=== PATIENT | female | born 1955 | race Caucasian/White ===

== ENCOUNTER 2021-06-19 07:20 | Inpatient (IN) ==
[2021-06-19] MEDS ORDERED: fentaNYL citrate 100 MCG/2 ML VIAL IV STA (07:42)
--- NOTE | 2021-06-19 07:50 | Emergency Department Note ---
Impression & Plan Spinal stenosis of lumbar region with radiculopathy, Lumbar radiculopathy ED Provider Note Provider: Kip Rogers MD DATE OF SERVICE: 06/19/2021 CHIEF COMPLAINT: Back pain HISTORY OF PRESENT ILLNESS: Patient is a 65-year-old female history of hypertension and diabetes presenting here today complaining of worsening lower back pain. Patient states she has had some ongoing issues for quite some times more than 5 years. She reports that this pain initially began in the low back with some radiation of the left leg and some numbness in the left thigh that over the past several years moved into her left foot. Patient states more recently has worsened and she is now having some pain wrapping around to her right hip and right upper thigh but no numbness here. Patient states she has been stumbling a bit but has not suffered any serious falls. Patient reports he has had some intermittent episodes of incontinence but this has been better more recently. Denies numbness or tingling in the groin currently. Patient states that she has been using muscle relaxants hydrocodone except this morning to try to help with her pain. Has been in contact with Dr. Espinosa and was scheduled for surgery which was put on hold due to the pandemic. No prior histories of back surgery. Patient states that he is unable to get around adequately is having uncontrolled pain. Has been using gabapentin in addition to her hydrocodone and muscle relaxer. Does take a baby aspirin. In discussion with Dr. Espinosa's office was referred to the ER with worsening symptoms and thus she presents here today with her . Patient did have a prior series of spinal injections for pain control that were only helpful very temporarily. REVIEW OF SYSTEMS: A total of 10 review of systems was obtained and negative except as stated above in the HPI. PAST MEDICAL HISTORY: As noted above MEDICATIONS: Reviewed home medications includes 81 mg aspirin SOCIAL HISTORY: , lives at home in [place] PHYSICAL EXAM: GENERAL: alert and oriented in no acute distress on stretcher Head: normocephalic and atraumatic EYES: No injection, discharge or icterus. NECK: Trachea midline. LUNGS: Airway patent. No retractions or tachypnea HEART: Regular rate and rhythm. ABDOMEN: Soft and non-tender, without guarding or rebound. BACK: Patient with some mild diffuse lower back tenderness of the lumbar region midline as well as the SI joints. SKIN: Acyanotic, warm, dry, without rashes EXTREMITIES: Without swelling, tenderness or deformity NEUROLOGICAL: No aphasia. No facial droop or slurred speech. Normal strength and tone in the extremities. Ambulatory with slight shuffling gait. Patient with some decreased sensation subjectively of the left leg but feels gross touch throughout. PDMP was checked without noted issue. Patient's laboratory studies reviewed. Differential includes Musculoskeletal, disc herniation, fracture, metastatic disease, cord compression, discitis, sciatica, cauda equina, infection, aortic disease, renal colic, gastrointestinal, as well as other pathologies. IMPRESSION/MEDICAL DECISION MAKING: Patient history of back disease/disc disease now worsening pain. Given some pain control here. Has been on gabapentin, muscle relaxer, hydrocodone at home. Follows with Dr. Espinosa. No emergent immediate neurological status change reported by the patient. Denies saddle anesthesia. Some intermittent episodes of incontinence with the patient states this has actually improved a little bit more recently other her pain predominantly on the right side of her back into her upper thighs worsened. Patient states that the pain again is uncontrolled at home. Given small amount of pain medicine here. Discussed with Dr. Espinosa. Basic blood work without severe abnormality. Discussed with Dr. Espinosa and will bring into the hospital for further care from an orthopedic spine standpoint and see if we are able to possibly get her for back surgery given her significant pain complaints. Patient in agreement with this plan. DIAGNOSIS: Low back pain with radiculopathy DISPOSITION: Further care by orthopedic spine Patient was agreeable with this plan. 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 requests no balloons in hospital room. Scoliosis Sleep apnea CPAP-not currently using due to recall Spinal stenosis TMJ (temporomandibular joint disorder) wears mouth guard qHS; denies clicking or locking Urinary incontinence Surgical History History of cataract surgery History of colonoscopy History of detached retina repair History of non-cataract eye surgery multiple BL History of total abdominal hysterectomy and bilateral salpingo-oophorectomy History of wisdom tooth extraction Family History Father Slow to wake up after anesthesia Social History Smoking Status: Never smoker Second Hand Exposure: No; Tobacco Cessation Education Requested by Patient: No Hx Alcohol Use: Yes Alcohol type: wine Hx Substance Use: No Preferred Language: Frisian Communication Ability: Effective Dairy Department Manager Required: No Beliefs That Will Affect Care: None Current Living Situation: Spouse Other Information That Helps Us Care for You: No Feels Safe at Home: Yes Safety Concerns: Feels Safe At This Time Assistive Devices: None Allergies Allergies Allergy/AdvReac Type Severity Reaction Status Date / Time ciprofloxacin [From Cipro] Allergy facial Verified 06/19/21 08:56 edema Sulfa (Sulfonamide Allergy Unknown Verified 06/19/21 08:56 Antibiotics) azithromycin [From Zithromax] AdvReac Tachycardia Verified 06/19/21 08:56 Home Meds Home Medications Medication Instructions Recorded Confirmed aspirin 81 mg tablet,delayed 81 mg PO HS 05/08/21 06/19/21 release calcium carbonate 600 mg-vitamin 1 tab PO HS 05/08/21 06/19/21 D3 5 mcg (200 unit) tablet fluoxetine 20 mg capsule (Prozac) 20 mg PO QAM 05/08/21 06/19/21 gabapentin 100 mg capsule 100 - 200 mg PO TID 05/08/21 06/19/21 (Neurontin) hydrocodone 5 mg-acetaminophen 325 1 tab PO Q6H PRN 05/08/21 06/19/21 mg tablet insulin degludec 100 unit/mL 50 unit SUBCUT HS 05/08/21 06/19/21 subcutaneous solution (Tresiba U-100 Insulin) lisinopril 20 1 tab PO QAM 05/08/21 06/19/21 mg-hydrochlorothiazide 25 mg tablet metformin 500 mg tablet 1,000 mg PO BID 05/08/21 06/19/21 methocarbamol 500 mg tablet 500 mg PO Q8H PRN 05/08/21 06/19/21 tblgpvxscwqh-oehvovgo-vmksfa tablet 1 tab PO QAM 05/08/21 06/19/21 pioglitazone 30 mg tablet (Actos) 30 mg PO QAM 05/08/21 06/19/21 vit C 250 mg-vit E 90 mg-zinc 40 1 tab PO BID 05/08/21 06/19/21 mg-copper 1 [id number]-[id number] capsule (PreserVision AREDS-2) Results & Data (ED) Vital Signs Vital Signs - 24 hr 06/19/21 07:28 Temperature 36.4 C L Temperature Source Oral Pulse Rate 74 Respiratory Rate 20 Respiratory Effort / Characteristics Non-Labored Respiratory Depth Normal Blood Pressure 168/79 H Blood Pressure Mean 108 Pulse Oximetry 100 Oxygen Delivery Method Room Air Sepsis Recent Fever Within 48 Hours No Sepsis New/Unexplained Change in Mental Status N/A Sepsis Action Taken by Nursing No Action Required Laboratory Data Result diagrams: 06/19/21 08:15 06/19/21 08:15 Lab Results 06/19/21 06/19/21 06/19/21 Range/Units 08:15 08:15 08:15 WBC 5.54 (4.8-10.8) K/uL RBC 4.40 (4.2-5.4) M/uL Hgb 13.1 (12.0-16.0) g/dL Hct 41.0 (37-47) % MCV 93.2 (80-100) fL MCH 29.8 (25-34) pg MCHC 32.0 (32-36) g/dL RDW Std Deviation 46.3 (36.4-46.3) fL RDW Coeff of Harmeet 13.5 (11.5-14.5) % Plt Count 298 (130-400) K/uL MPV 9.3 (7.4-10.4) fL Immature Gran % (Auto) 0.4 % Neut % (Auto) 62.2 % Lymph % (Auto) 25.3 % [place] % (Auto) 10.5 % Eos % (Auto) 1.4 % Baso % (Auto) 0.2 % Neut # (Auto) 3.45 (1.4-6.5) K/uL Lymph # (Auto) 1.40 (1.2-3.4) K/uL [place] # (Auto) 0.58 (0.11-0.59) K/uL Eos # (Auto) 0.08 (0-0.5) K/uL Baso # (Auto) 0.01 (0-0.2) K/uL Immature Gran # (Auto) 0.02 (0.00-0.02) K/uL PT 9.9 (9.0-12.0) Seconds INR 1.0 (0.9-1.1) Sodium 139 (136-145) mmol/L Potassium 3.9 (3.5-5.1) mmol/L Chloride 104 (98-107) mmol/L Carbon Dioxide 29 (21-32) mmol/L Anion Gap 6 (3-11) BUN 15 (6-23) mg/dl Creatinine 0.59 L (0.6-1.2) mg/dl Est Cr Clr Drug Dosing 102.6 ml/min Est GFR ( Amer) 112.3 ml/min Est GFR (Non-Af Amer) 96.9 ml/min BUN/Creatinine Ratio 25.4 H (10-20) Glucose 79 (70-99(Fasting)) mg/dl Calcium 8.9 (8.5-10.1) mg/dl Urine Color Urine Appearance (Clear) Urine pH (4.5-7.5) Ur Specific Hyrum (1.000-1.030) Urine Protein (Negative) Urine Glucose (UA) (Negative) Urine Ketones (Negative) Urine Blood (Negative) Urine Nitrite (Negative) Urine Bilirubin (Negative) Urine Urobilinogen (Negative) Ur Leukocyte Esterase (Negative) Urine WBC (Auto) (0-5) /hpf Urine RBC (Auto) (0-4) /hpf U Hyaline Cast (Auto) (0-5) /lpf U Epithel Cells (Auto) (0-5) /lpf Urine Bacteria (Auto) (Negative) SARS-CoV-2, RNA, NAAT (NEGATIVE) 06/19/21 06/19/21 Range/Units 08:15 08:15 WBC (4.8-10.8) K/uL RBC (4.2-5.4) M/uL Hgb (12.0-16.0) g/dL Hct (37-47) % MCV (80-100) fL MCH (25-34) pg MCHC (32-36) g/dL RDW Std Deviation (36.4-46.3) fL RDW Coeff of Harmeet (11.5-14.5) % Plt Count (130-400) K/uL MPV (7.4-10.4) fL Immature Gran % (Auto) % Neut % (Auto) % Lymph % (Auto) % [place] % (Auto) % Eos % (Auto) % Baso % (Auto) % Neut # (Auto) (1.4-6.5) K/uL Lymph # (Auto) (1.2-3.4) K/uL [place] # (Auto) (0.11-0.59) K/uL Eos # (Auto) (0-0.5) K/uL Baso # (Auto) (0-0.2) K/uL Immature Gran # (Auto) (0.00-0.02) K/uL PT (9.0-12.0) Seconds INR (0.9-1.1) Sodium (136-145) mmol/L Potassium (3.5-5.1) mmol/L Chloride (98-107) mmol/L Carbon Dioxide (21-32) mmol/L Anion Gap (3-11) BUN (6-23) mg/dl Creatinine (0.6-1.2) mg/dl Est Cr Clr Drug Dosing ml/min Est GFR ( Amer) ml/min Est GFR (Non-Af Amer) ml/min BUN/Creatinine Ratio (10-20) Glucose (70-99(Fasting)) mg/dl Calcium (8.5-10.1) mg/dl Urine Color Yellow Urine Appearance Clear (Clear) Urine pH 5.5 (4.5-7.5) Ur Specific Hyrum 1.024 (1.000-1.030) Urine Protein Negative (Negative) Urine Glucose (UA) Negative (Negative) Urine Ketones Negative (Negative) Urine Blood Negative (Negative) Urine Nitrite Negative (Negative) Urine Bilirubin Negative (Negative) Urine Urobilinogen Negative (Negative) Ur Leukocyte Esterase 2+ H (Negative) Urine WBC (Auto) 10-30 H (0-5) /hpf Urine RBC (Auto) 0-4 (0-4) /hpf U Hyaline Cast (Auto) 1-5 (0-5) /lpf U Epithel Cells (Auto) 20-30 H (0-5) /lpf Urine Bacteria (Auto) Negative (Negative) SARS-CoV-2, RNA, NAAT NEGATIVE (NEGATIVE) Administered Medications Fluoxetine HCl (Fluoxetine Hcl 20 Mg Cap) 20 mg PO QAM [facility] Stop: 07/19/21 10:29 Last Admin: 06/19/21 10:27 Dose: Not Given Documented by: [id number] Gabapentin (Gabapentin 100 Mg Cap) 200 mg PO BID [facility] Stop: 07/19/21 10:29 Last Admin: 06/19/21 10:26 Dose: Not Given Documented by: [id number] Sodium Chloride (Nss 1000ml) 1,000 mls @ 75 mls/hr IV .[id number] [facility] Stop: 07/19/21 09:59 Last Admin: 06/19/21 10:27 Dose: 75 mls/hr Documented by: [id number] Discontinued Medications Fentanyl Citrate (Fentanyl Citrate 100 Mcg/2 Ml Vial) 50 mcg IV NOW [facility] Stop: 06/19/21 07:43 Last Admin: 06/19/21 08:30 Dose: 50 mcg Documented by: [id number] Lisinopril/HCTZ (Lisinopril/Hctz 20/25mg 1 Tab) 1 tab PO QAM [facility] Stop: 07/19/21 10:29 Last Admin: 06/19/21 10:36 Dose: 1 tab Documented by: [id number] Discharge Plan Visit Data Chief Complaint: Back Injury/Pain Stated Complaint: SEVERE LOWER BACK PAIN ED Provider: Kip Rogers Discharge Problem: Spinal stenosis of lumbar region with radiculopathy, Lumbar radiculopathy Patient Disposition: Admitted As Inpatient Discharge Instructions Interventions: ED Discharge Assessment Last Done: 06/19/21 09:50
[2021-06-19 08:45] LABS: Appearance Urine Clear (Clear); Bacteria Urine Automated Negative (Negative); Bilirubin Urine Negative (Negative); Blood Urine Negative (Negative); Color Urine Yellow; Epithelial Cell Urine Auto 20-30 /lpf (0-5); Glucose Urine UA Negative (Negative); Ketones Urine Negative (Negative); Leukocyte Esterase Urine 2+ (Negative); Nitrite Urine Negative (Negative); Protein Urine Negative (Negative); RBC Urine Automated 0-4 /hpf (0-4); Specific Gravity Urine 1.024 (1.000-1.030); Urobilinogen Urine Negative (Negative); pH Urine 5.5 (4.5-7.5)
[2021-06-19 08:51] LABS: Basophils # (auto) 0.01 K/uL (0-0.2); Basophils % (auto) 0.2 %; Eosinophils # (auto) 0.08 K/uL (0-0.5); Eosinophils % (auto) 1.4 %; Hemoglobin 13.1 g/dL (12.0-16.0); Immature Granulocytes # (auto) 0.02 K/uL (0.00-0.02); Immature Granulocytes % (auto) 0.4 %; Lymphocytes % (auto) 25.3 %; Mean Corpuscular Hemoglobin 29.8 pg (25-34); Mean Corpuscular Volume 93.2 fL (80-100); Mean Platelet Volume 9.3 fL (7.4-10.4); Monocytes # (auto) 0.58 K/uL (0.11-0.59); Monocytes % (auto) 10.5 %; Neutrophils # (auto) 3.45 K/uL (1.4-6.5); Neutrophils % (auto) 62.2 %; Platelet Count 298 K/uL (130-400); RDW Coefficient of Variation 13.5 % (11.5-14.5); RDW Standard Deviation 46.3 fL (36.4-46.3); White Blood Count 5.54 K/uL (4.8-10.8)
[2021-06-19 08:58] LABS: Prothrombin Time 9.9 Seconds (9.0-12.0)
[2021-06-19 09:15] LABS: BUN Creatinine Ratio 25.4 (10-20); Calcium 8.9 mg/dl (8.5-10.1); Creatinine Clr Calc Pharmacy 102.6 ml/min; Est GFR (African American) 112.3 ml/min; Est GFR (Non-African American) 96.9 ml/min; Potassium 3.9 mmol/L (3.5-5.1)
[2021-06-19] MEDS ORDERED: traMADol HCL 50 MG TABLET PO PRN (10:00)
[2021-06-19] MEDS ORDERED: NON-FORMULARY MEDICATION (Pioglitazone [Actos] 30 mg Tablet) PO SCH (10:00)
[2021-06-19] MEDS ORDERED: METHOCARBAMOL 500 MG TABLET PO PRN (10:00)
[2021-06-19] MEDS ORDERED: ACETAMINOPHEN 1,000 MG/100 ML VIAL IV PRN (10:00)
[2021-06-19] MEDS ORDERED: PHARMACY GLYCEMIC MGMT CONSULT PRN (10:00)
[2021-06-19] MEDS ORDERED: ACETAMINOPHEN 500 MG TAB PO PRN (10:00)
[2021-06-19] MEDS ORDERED: HYDROmorphone INJ 0.5 MG/0.5 ML SYR IV PRN (10:00)
[2021-06-19] MEDS ORDERED: ONDANSETRON INJ 2 MG/ML 2 ML VIAL IV PRN (10:00)
[2021-06-19] MEDS ORDERED: HYDROmorphone INJ 1 MG/ML SYRINGE IV PRN (10:00)
[2021-06-19] MEDS ORDERED: METOCLOPRAMIDE HCL INJ 5 MG/ML 2 ML VIAL IV PRN (10:00)
[2021-06-19] MEDS ORDERED: ALUMINUM/MAGNESIUM SUSP 30 ML UDC PO PRN (10:00)
[2021-06-19] MEDS ORDERED: NALOXONE HCL 0.4 MG/1 ML VIAL/CARP IV PRN (10:00)
[2021-06-19] MEDS ORDERED: ONDANSETRON 4 MG OD TAB PO PRN (10:00)
[2021-06-19] MEDS ORDERED: PROMETHAZINE HCL 12.5 MG in SODIUM CHLORIDE 0.9% 50 ML IV PRN (10:00)
[2021-06-19] MEDS ORDERED: MAGNESIUM HYDROXIDE SUSP 30 ML UDC PO PRN (10:00)
--- NOTE | 2021-06-19 10:01 | History & Physical Report ---
Date of Service June 19, 2021 Assessment & Plan (1) Spinal stenosis of lumbar region with radiculopathy: Plan: At this time the patient has progressive deficit with significant pain affecting the S1 nerve root left greater than right. I am recommending urgent lumbar decompression fusion L5-S1. She has known displaced left retrolisthesis with lateral recess and foraminal disease it would require aggressive facetectomy and foraminotomies further adding to underlying alignment issues and stability subsequently requiring fusion. Risk benefits pros cons alternatives were outlined in detail. I will make her n.p.o. after midnight obtain an urgent MRI date for updated imaging. History of Present Illness Chief Complaint: Back and bilateral leg pain with weakness Primary Care Provider: Heidi Stanford, This is a 65-year-old female who presents to emergency room with a steady decline in status. She has been seen in our office recently with concerns regarding back pain radiating to the bilateral buttock and vertically down the left lower extremity to the foot. Is been going progressive the past several years. Unfortunately injections performed recently lumbar spine exacerbated her radiculopathy. She is unable to stand or walk any distance. She notes marked deficits with her left foot tickly with plantar flexion. Allergies Allergy/AdvReac Type Severity Reaction Status Date / Time ciprofloxacin [From Cipro] Allergy facial Verified 06/19/21 08:56 edema Sulfa (Sulfonamide Allergy Unknown Verified 06/19/21 08:56 Antibiotics) azithromycin [From Zithromax] AdvReac Tachycardia Verified 06/19/21 08:56 Home Medications Medication Instructions Recorded Confirmed Type aspirin 81 mg tablet,delayed 81 mg PO HS 05/08/21 06/19/21 History release calcium carbonate 600 mg-vitamin 1 tab PO HS 05/08/21 06/19/21 History D3 5 mcg (200 unit) tablet fluoxetine 20 mg capsule (Prozac) 20 mg PO QAM 05/08/21 06/19/21 History gabapentin 100 mg capsule 100 - 200 mg PO TID 05/08/21 06/19/21 History (Neurontin) hydrocodone 5 mg-acetaminophen 325 1 tab PO Q6H PRN 05/08/21 06/19/21 History mg tablet insulin degludec 100 unit/mL 50 unit SUBCUT HS 05/08/21 06/19/21 History subcutaneous solution (Tresiba U-100 Insulin) lisinopril 20 1 tab PO QAM 05/08/21 06/19/21 History mg-hydrochlorothiazide 25 mg tablet metformin 500 mg tablet 1,000 mg PO BID 05/08/21 06/19/21 History methocarbamol 500 mg tablet 500 mg PO Q8H PRN 05/08/21 06/19/21 History iuageaxebent-muqwmwtr-kmhgpb tablet 1 tab PO QAM 05/08/21 06/19/21 History pioglitazone 30 mg tablet (Actos) 30 mg PO QAM 05/08/21 06/19/21 History vit C 250 mg-vit E 90 mg-zinc 40 1 tab PO BID 05/08/21 06/19/21 History mg-copper 1 ua-tmhezi-olbmoj capsule (PreserVision AREDS-2) Past Med/Surg History Medical History (Updated 06/19/21 @ 10:00 by Tom Espinoas DO) Anxiety and depression controlled, stable per pt DM type 2 (diabetes mellitus, type 2) IDDM Fear of loud noises Hearing deficit BL SOSA History of endometrial cancer 2009 - sx + radiation History of migraine History of transfusion 2010 with hysterectomy Osteoarthritis 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 requests no balloons in hospital room. Scoliosis Sleep apnea CPAP-not currently using due to recall Spinal stenosis TMJ (temporomandibular joint disorder) wears mouth guard qHS; denies clicking or locking Urinary incontinence Surgical History History of cataract surgery History of colonoscopy History of detached retina repair History of non-cataract eye surgery multiple BL History of total abdominal hysterectomy and bilateral salpingo-oophorectomy History of wisdom tooth extraction Family History Father Slow to wake up after anesthesia Social History Smoking Status: Never smoker Second Hand Exposure: No; Hx Alcohol Use: Yes Hx Substance Use: No Preferred Language: Divehi Communication Ability: Effective Electromatic Typist Required: No Beliefs That Will Affect Care: None Current Living Situation: Spouse Feels Safe at Home: Yes Assistive Devices: Glasses and Hearing Aid - Bilateral Physical Exam Physical Exam: On exam the patient demonstrates sensation light touch and cold bilateral extremities. She is marked tension signs with straight leg raising on the left compared to the right. There is some deficits of plantarflexion at a 4-/5 on the left compared to five five on the right. Dorsiflexion appears to be symmetric over five or five bilaterally as well as quadriceps. Results & Data ([facility]) Vital Signs (Past 12 Hours) Vital Signs Temp Pulse Pulse Resp BP BP Pulse Ox 06/19/21 09:20 69 18 146/70 H 98 06/19/21 07:28 36.4 C L 74 20 168/79 H 100 Code Status & VTE Plan VTE Prophylaxis Plan VTE Prophylaxis will be ordered: Yes
[2021-06-19] MEDS: GABAPENTIN 100 MG CAP PO SCH ×2 (10:26→20:39)
[2021-06-19] MEDS: FLUoxetine HCL 20 MG CAP PO SCH (10:27)
[2021-06-19] MEDS: SODIUM CHLORIDE 0.9% 1000ML 1,000 ML IV SCH ×2 (10:27→23:34)
[2021-06-19] MEDS ORDERED: LISINOPRIL/HCTZ 20/25MG 1 TAB PO SCH (10:30)
[2021-06-19] MEDS ORDERED: GLUCOSE 40% GEL 15 GM TUBE PO PRN (11:03)
[2021-06-19] MEDS ORDERED: GLUCOSE 10 TABS/TUBE PO PRN (11:03)
[2021-06-19] MEDS ORDERED: GLUCAGON FOR INJ 1 MG VIAL SQ PRN (11:03)
[2021-06-19] MEDS ORDERED: CARBOHYDRATES FOR HYPOGLYCEMIA PO PRN (11:03)
[2021-06-19] MEDS ORDERED: DEXTROSE 50% 50 ML SYRINGE IV PRN (11:03)
--- NOTE | 2021-06-19 11:14 | Consultation ---
Date of Consultation June 19, 2021 Assessment & Plan (1) Spinal stenosis of lumbar region with radiculopathy: (2) HTN (hypertension): (3) DM type 2 (diabetes mellitus, type 2): This is a 65-year-old female who has a significant past medical history of T2DM, HTN, Anxiety/Depression, hx of GABRIEL not using CPAP who presents to ED due to worsening low back pain with radicular symptoms and stool incontinence for several weeks. Spinal stenosis of lumbar region with radiculopathy Dr. Espinosa on board Plan to undergo a lumbar decompression and fusion of L5-S1 MRI ordered N.p.o. after midnight Pain control per Dr. Espinosa T2DM Hold Tresiba, Metformin and Actos Glycemic pharmacy consult placed by admitting team Appreciate pharmacy assistance and blood glucose management last a1c 7.6 on 05/17/21 Hypertension Blood pressure controlled at 149/70 Lisinopril/HCTZ, will hold HCTZ component until reevaluated postoperatively Depression with anxiety Continue Prozac Mood stable DVT ppx: SCD/TEDS per primary Dispo: Per primary PCP: Heidi Stanford, pt resides near [place], [place] FULL CODE Patient was seen and examined in collaboration with, please see addendum Thank you for this consultation. We will follow the patient with you during their hospital stay. You can reach a member of the [facility] Hospitalist Team 09/12 via hospitalist role on tiger text. The chart was completed utilizing [employer] Speech voice recognition software. Grammatical errors, random word insertions, pronoun errors, and incomplete sentences are an occasional consequence of this system due to software limitations, ambient noise, and hardware issues. Any formal questions or concerns about the content, text, or information contained within the body of this dictation should be directly addressed to the provider for clarification. Supervising Physician Co-Signing Physician Notes Patient is a 65-year-old female with history of hypertension, diabetes mellitus and other medical problems was consulted for medical management. Patient is planned for lumbar surgery by Dr. Espinosa tomorrow. Currently she states that lower back pain is controlled with pain medication. Denies any chest pain, shortness of breath, dizziness, nausea, abdominal pain. On exam patient is obese, no apparent distress, normocephalic atraumatic, EOMI, normal breath sounds, clear to auscultation, S1-S2,+ murmur, 1+ bilateral lower extremity edema, abdomen soft, nontender, normal bowel sounds, alert, awake, oriented, grossly no focal deficits, Back+ lower back tenderness. Pain management, activity as per primary care team. Agree with insulin therapy while hospitalized to manage diabetes mellitus. Hold HCTZ for now. Monitor for postop anemia. Bowel regimen to prevent constipation. PT OT as able. I personally reviewed the record. Patient is interviewed and examined at bedside. Patient's care is coordinated with Reyna Marino PA-C. Please refer to the documentation above for details of patient's presentation and for discussion of other issues. History of Present Illness Requesting Physician: Dr. Espinosa Reason for Consultation: Medical management Attending Physician: Tom Espinosa, DO History of Present Illness This is a 65-year-old female who has a significant past medical history of T2DM, HTN, Anxiety/Depression, hx of GABRIEL not using CPAP who presents to ED due to worsening low back pain with radicular symptoms and stool incontinence for several weeks. She was scheduled to undergo back surgery by Dr. Espinosa, but was canceled due to the pandemic. Due to worsening symptoms she was instructed to come to ED. She is sitting up at bedside eating lunch. Currently she complains of chronic back pain, 5 out of 10 with pain radiating to her lower extremities. She states that since around September she has had difficulty with urinary incontinence and a week ago had fecal incontinence. She has history of T2DM relatively well controlled, last A1c at the end of April was 7.6. She states the addition of Tresiba has helped her significantly. She is on a regimen of Metformin, Actos and Tresiba. She also has history of hypertension controlled with lisinopril hydrochlorothiazide. Currently she offers no acute concerns. She denies fever, chills, sweats, lightheadedness, dizziness, chest pain, shortness of breath, cough, URI symptoms, nausea, vomiting, abdominal pain, dysuria, increased urgency or frequency with urination, melena or hematochezia. Appetite is well. She has been n.p.o. since last evening due to not knowing when she may have surgery. Allergies Allergy/AdvReac Type Severity Reaction Status Date / Time ciprofloxacin [From Cipro] Allergy facial Verified 06/19/21 08:56 edema Sulfa (Sulfonamide Allergy Unknown Verified 06/19/21 08:56 Antibiotics) azithromycin [From Zithromax] AdvReac Tachycardia Verified 06/19/21 08:56 Home Medications Medication Instructions Recorded Confirmed Type aspirin 81 mg tablet,delayed 81 mg PO HS 05/08/21 06/19/21 History release calcium carbonate 600 mg-vitamin 1 tab PO HS 05/08/21 06/19/21 History D3 5 mcg (200 unit) tablet fluoxetine 20 mg capsule (Prozac) 20 mg PO QAM 05/08/21 06/19/21 History gabapentin 100 mg capsule 100 - 200 mg PO TID 05/08/21 06/19/21 History (Neurontin) hydrocodone 5 mg-acetaminophen 325 1 tab PO Q6H PRN 05/08/21 06/19/21 History mg tablet insulin degludec 100 unit/mL 50 unit SUBCUT HS 05/08/21 06/19/21 History subcutaneous solution (Tresiba U-100 Insulin) lisinopril 20 1 tab PO QAM 05/08/21 06/19/21 History mg-hydrochlorothiazide 25 mg tablet metformin 500 mg tablet 1,000 mg PO BID 05/08/21 06/19/21 History methocarbamol 500 mg tablet 500 mg PO Q8H PRN 05/08/21 06/19/21 History wehbfqaggldv-ucjfbhrh-apstds tablet 1 tab PO QAM 05/08/21 06/19/21 History pioglitazone 30 mg tablet (Actos) 30 mg PO QAM 05/08/21 06/19/21 History vit C 250 mg-vit E 90 mg-zinc 40 1 tab PO BID 05/08/21 06/19/21 History mg-copper 1 bh-lguazn-twhhwa capsule (PreserVision AREDS-2) Patient History Medical History Anxiety and depression controlled, stable per pt DM type 2 (diabetes mellitus, type 2) IDDM Fear of loud noises Hearing deficit BL SOSA History of endometrial cancer 2009 - sx + radiation History of migraine History of transfusion 2009 with hysterectomy HTN (hypertension) Osteoarthritis 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 requests no balloons in hospital room. Scoliosis Sleep apnea CPAP-not currently using due to recall Spinal stenosis TMJ (temporomandibular joint disorder) wears mouth guard qHS; denies clicking or locking Urinary incontinence Surgical History History of cataract surgery History of colonoscopy History of detached retina repair History of non-cataract eye surgery multiple BL History of total abdominal hysterectomy and bilateral salpingo-oophorectomy History of wisdom tooth extraction Family History Father Slow to wake up after anesthesia Social History Smoking Status: Never smoker Second Hand Exposure: No; Tobacco Cessation Education Requested by Patient: No Hx Alcohol Use: Yes Alcohol type: wine Hx Substance Use: No Preferred Language: Wallisian Communication Ability: Effective Table Maker Required: No Beliefs That Will Affect Care: None Current Living Situation: Spouse Other Information That Helps Us Care for You: No Feels Safe at Home: Yes Safety Concerns: Feels Safe At This Time Assistive Devices: None Review of Systems Review of Systems: All systems reviewed & are unremarkable except as noted in HPI & below Physical Exam Physical Exam: Constitutional: WD/WN, vitals as above, NAD, sitting up in bed, pleasant, conversing easily Head: Normocephalic, Atraumatic Eyes: PERRL, conjunctivae normal, anicteric sclerae ENMT: external ear and nose normal, oropharynx normal Neck: trachea midline, no thyromegaly normal visual inspection Respiratory: normal respiratory effort, lungs clear to auscultation, no wheeze, rales, rhonchi. Normal insp/exp effort, no accessory muscle use Cardiovascular: RRR, no murmur, no edema Vessels: no JVD or carotid bruit Chest: normal inspection of chest Abdomen: normal bowel sounds, soft, nontender, no hepatosplenomegaly Musculoskeletal: no cyanosis or clubbing, extremities motor strength 5/5, activ e range of motion x4 Skin: no rashes, warm and dry normal turgor Neurologic: PERRL, EOMI, accommodation nl, no face palsy, no dysarthria CN's II-XI intact bilaterally and moves all extremities Psychiatric: A+Ox3, euthymic affect Lymphatic: no cervical or axillary lymphadenopathy : deferred Results & Data ([facility]) Vital Signs (Past 12 Hours) Vital Signs Temp Pulse Pulse Pulse Resp BP BP 06/19/21 10:00 36.9 C 64 16 149/70 H 06/19/21 09:20 69 18 146/70 H 06/19/21 07:28 36.4 C L 74 20 168/79 H Pulse Ox 06/19/21 10:00 100 06/19/21 09:20 98 06/19/21 07:28 100 Laboratory Results Short CBC 06/19/21 Range/Units 08:15 WBC 5.54 (4.8-10.8) K/uL Hgb 13.1 (12.0-16.0) g/dL Hct 41.0 (37-47) % Plt Count 298 (130-400) K/uL BMP 06/19/21 08:15 Sodium 139 Potassium 3.9 Chloride 104 Carbon Dioxide 29 BUN 15 Creatinine 0.59 L Glucose 79 Calcium 8.9 Urine 06/19/21 Range/Units 08:15 Urine Color Yellow Urine Appearance Clear (Clear) Urine pH 5.5 (4.5-7.5) Ur Specific [place] 1.024 (1.000-1.030) Urine Protein Negative (Negative) Urine Glucose (UA) Negative (Negative) Diagnostic Findings CXR 05/17/21: IMPRESSION: 1. No acute cardiopulmonary findings. 2. Mild to moderate enlargement of the cardiac silhouette. Medications Administered Current Inpatient Medications Acetaminophen (Acetaminophen 500 Mg Tab) 1,000 mg PO Q8H PRN PRN Reason: MILD Pain Scale 1,2,3 & Pre PT Stop: 07/19/21 09:59 Al Hydrox/Mg Hydrox/Simethicone (Aluminum/Magnesium Susp 30 Ml Udc) 30 ml PO Q6H PRN PRN Reason: Dyspepsia Stop: 07/19/21 09:59 Aspirin (Aspirin 81 Mg Ectab) 81 mg PO QPM YANNA Stop: 07/19/21 20:59 Dextrose (Dextrose 50% 50 Ml Syringe) 25 - 50 ml IV UD PRN; Protocol PRN Reason: Hypoglycemia Protocol Stop: 07/19/21 11:02 Fluoxetine HCl (Fluoxetine Hcl 20 Mg Cap) 20 mg PO QAM YANNA Stop: 07/19/21 10:29 Last Admin: 06/19/21 10:27 Dose: Not Given Documented by: Gabapentin (Gabapentin 100 Mg Cap) 200 mg PO BID [facility] Stop: 07/19/21 10:29 Last Admin: 06/19/21 10:26 Dose: Not Given Documented by: Glucagon (Glucagon For Inj 1 Mg Vial) 1 mg SQ UD PRN; Protocol PRN Reason: Hypoglycemia Protocol Stop: 07/19/21 11:02 Glucose (Glucose 10 Tabs/Tube) 4 - 8 tabs PO UD PRN; Protocol PRN Reason: Hypoglycemia Protocol Stop: 07/19/21 11:02 Glucose (Glucose 40% Gel 15 Gm Tube) 15 - 30 gm PO UD PRN; Protocol PRN Reason: Hypoglycemia Protocol Stop: 07/19/21 11:02 Hydrochlorothiazide (Hydrochlorothiazide 25 Mg Tab) 25 mg PO QAM [facility] Stop: 07/20/21 08:59 Hydromorphone HCl (Hydromorphone Inj 0.5 Mg/0.5 Ml Syr) 0.5 mg IV Q3H PRN PRN Reason: MOD pain (scale 4-6) & Pre PT Stop: 07/03/21 09:59 Hydromorphone HCl (Hydromorphone Inj 1 Mg/Ml Syringe) 1 mg IV Q3H PRN PRN Reason: severe pain (scale 7-10) Stop: 07/03/21 09:59 Cefazolin Sodium (Ancef 2000mg) 2,000 mg in 15 mls @ 3.75 mls/min IV PREOP YANNA; Protocol Stop: 06/20/21 18:00 Sodium Chloride (Nss 1000ml) 1,000 mls @ 75 mls/hr IV .[id number] [facility] Stop: 07/19/21 09:59 Last Admin: 06/19/21 10:27 Dose: 75 mls/hr Documented by: Promethazine HCl 12.5 mg/ (Sodium Chloride) 50.5 mls @ 202 mls/hr IV Q6H PRN PRN Reason: Nausea &/or Vomiting Stop: 07/19/21 09:59 Acetaminophen (Ofirmev) 1,000 mg in 100 mls @ 400 mls/hr IV Q8H PRN PRN Reason: Pain Rating 1-3 & Pre PT Stop: 06/22/21 09:59 Insulin Aspart (Insulin Aspart Per Unit) 0 units SC ACHS [facility] Stop: 07/19/21 11:29 Lisinopril (Lisinopril 20 Mg Tab) 20 mg PO QAM YANNA Stop: 07/20/21 08:59 Magnesium Hydroxide (Magnesium Hydroxide Susp 30 Ml Udc) 30 ml PO Q24H PRN PRN Reason: Constipation Stop: 07/19/21 09:59 Methocarbamol (Methocarbamol 500 Mg Tablet) 500 mg PO Q8H PRN PRN Reason: Muscle Spasm Stop: 07/19/21 09:59 Metoclopramide HCl (Metoclopramide Hcl Inj 5 Mg/Ml 2 Ml Vial) 10 mg IV Q6H PRN PRN Reason: Nausea &/or Vomiting Stop: 07/19/21 09:59 Miscellaneous (Carbohydrates For Hypoglycemia ) 15 - 30 gm PO UD PRN PRN Reason: Hypoglycemia Protocol Stop: 07/19/21 11:02 Miscellaneous Information (Pharmacy Glycemic Mgmt Consult) 1 ea N/A UD PRN PRN Reason: Consult Stop: 07/19/21 09:59 Naloxone HCl (Naloxone Hcl 0.4 Mg/1 Ml Vial/Carp) 0.1 mg IV Q5M PRN PRN Reason: Oversedation/respiratory dep Stop: 07/19/21 09:59 Ondansetron HCl (Ondansetron Inj 2 Mg/Ml 2 Ml Vial) 4 mg IV Q6H PRN PRN Reason: Nausea &/or Vomiting Stop: 07/19/21 09:59 Ondansetron HCl (Ondansetron 4 Mg Od Tab) 4 mg PO Q6H PRN PRN Reason: Nausea Stop: 07/19/21 09:59 Oxycodone HCl (Oxycodone Hcl Ir 5 Mg Tab (Immediate Release)) 5 - 10 mg PO Q4H PRN PRN Reason: mod to severe pain Stop: 07/03/21 09:59 Tramadol HCl (Tramadol Hcl 50 Mg Tablet) 50 - 100 mg PO Q4H PRN PRN Reason: Moderate-Severe pain & Pre PT Stop: 07/19/21 09:59 ECG Rate (beats per minute): 69 Rhythm: normal sinus
--- NOTE | 2021-06-19 11:52 | Pharmacy Report ---
Pharmacy Glycemic Short Note 2 - Date of Service June 19, 2021 - Glycemic Short BSG Results (Last 24 hours): 06/19/21 06/19/21 08:15 10:46 Glucose 79 POC Glucose 78 OUTPATIENT ANTIDIABETIC REGIMEN: * Tresiba 50 units HS * Actos 30 mg daily * metformin 1 gm PO BID ASSESSMENT: * Ms Black is a 65 y/o F with a PMH of T2DM admitted for spinal surgery tomorrow. * Patient takes Lantus 50 units HS - this most likely describes her entire insulin requirements for the day. BSG this morning was 79 mg/dL. * For tonight, since NPO tomorrow, order Lantus 25 units tonight (Lantus 30 units if BSG 180 mg/dL or greater). * Novolog weight-based stress 2-3. PLAN FOR INPATIENT GLYCEMIC CONTROL: * Hold outpatient oral diabetes medications * Basal insulin * Lantus 25 units SQ HS (30 units if BSG > 180 mg/dL) * Bolus insulin * NovoLog per scale ACHS or Q6hrs while NPO * Goal Range: Low 110 mg/dL - High 140 mg/dL * Correction Factor: 20 mg/dL/unit * Nutritional / Prandial insulin per carb ratio of 1 unit per 7 grams CHO consumed PLAN FOR DISCHARGE: * TBD
--- NOTE | 2021-06-19 12:24 | Anesthesiology Consultation ---
Date of Service June 19, 2021 Assessment & Plan Chart Review Chart Review: Acceptable Risk for Surgery and Patient NOT seen in Pre Admission Testing Consults Requested none ASA ASA3 Proposed Anesthesia Anesthesia Type: General History Surgery Operation Date: 06/20/21 08:50 Proposed Procedures p L5-S1 Decompression Fusion Spinal Cord Monitoring - Tom Espinosa DO Height/Weight Height: 5 ft 2 in Weight: 92.986 kg Allergies Allergy/AdvReac Type Severity Reaction Status Date / Time ciprofloxacin [From Cipro] Allergy facial Verified 06/19/21 08:56 edema Sulfa (Sulfonamide Allergy Unknown Verified 06/19/21 08:56 Antibiotics) azithromycin [From Zithromax] AdvReac Tachycardia Verified 06/19/21 08:56 Medications Home Medications Medication Instructions Recorded Confirmed Last Taken aspirin 81 mg tablet,delayed 81 mg PO HS 05/08/21 06/19/21 06/18/21 release calcium carbonate 600 mg-vitamin 1 tab PO HS 05/08/21 06/19/21 06/18/21 D3 5 mcg (200 unit) tablet fluoxetine 20 mg capsule (Prozac) 20 mg PO QAM 05/08/21 06/19/21 06/19/21 20 mg gabapentin 100 mg capsule 100 - 200 mg PO TID 05/08/21 06/19/21 06/19/21 (Neurontin) 200 mg hydrocodone 5 mg-acetaminophen 325 1 tab PO Q6H PRN 05/08/21 06/19/21 06/18/21 22:00 mg tablet insulin degludec 100 unit/mL 50 unit SUBCUT 05/08/21 06/19/21 06/18/21 subcutaneous solution (Tresiba U-100 Insulin) lisinopril 20 1 tab PO QAM 05/08/21 06/19/21 06/18/21 mg-hydrochlorothiazide 25 mg tablet metformin 500 mg tablet 1,000 mg PO BID 05/08/21 06/19/21 06/18/21 methocarbamol 500 mg tablet 500 mg PO Q8H PRN 05/08/21 06/19/21 Unknown emwhkvhznfic-lamhhvvi-pvwhmk tablet 1 tab PO QAM 05/08/21 06/19/21 06/18/21 pioglitazone 30 mg tablet (Actos) 30 mg PO QAM 05/08/21 06/19/21 06/18/21 vit C 250 mg-vit E 90 mg-zinc 40 1 tab PO BID 05/08/21 06/19/21 06/18/21 mg-copper 1 rz-mzrrzw-mgxgip capsule (PreserVision AREDS-2) Active Medications Generic Name Dose Route Start Last Admin Trade Name Juanq PRN Reason Stop Dose Admin Fluoxetine HCl 20 mg 06/19/21 10:30 06/19/21 10:27 Fluoxetine Hcl 20 Mg Cap PO 07/19/21 10:29 Not Given QAM YANNA Gabapentin 200 mg 06/19/21 10:30 06/19/21 10:26 Gabapentin 100 Mg Cap PO 07/19/21 10:29 Not Given BID YANNA Sodium Chloride 1,000 mls @ 75 mls/hr 06/19/21 10:00 06/19/21 10:27 Nss 1000ml IV 07/19/21 09:59 75 mls/hr .[id number] YANNA Administration Past Medical History Medical History Anxiety and depression controlled, stable per pt DM type 2 (diabetes mellitus, type 2) IDDM Fear of loud noises Hearing deficit BL SOSA History of endometrial cancer 2010 - sx + radiation History of migraine History of transfusion 2009 with hysterectomy HTN (hypertension) Osteoarthritis 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 requests no balloons in hospital room. Scoliosis Sleep apnea CPAP-not currently using due to recall Spinal stenosis TMJ (temporomandibular joint disorder) wears mouth guard qHS; denies clicking or locking Urinary incontinence Exercise / Class Metabolic Activity III < 4 Walking/Shop/Light housework Past Family History Family History Father Slow to wake up after anesthesia Past Surgical History Surgical History History of cataract surgery History of colonoscopy History of detached retina repair History of non-cataract eye surgery multiple BL History of total abdominal hysterectomy and bilateral salpingo-oophorectomy History of wisdom tooth extraction Past Anesthesia History No Hx of Anesthesia Complications and No Family Hx of Anesthesia Complications History of PONV No Hx of PONV and No Hx of Motion Sickness Social History Smoking Status: Never smoker Hx Alcohol Use: Yes Alcohol type: wine alcohol intake frequency: holidays/special occasions only Hx Substance Use: No substance use type: does not use Physical Exam Vital Signs Last Vital Signs Temp 36.9 C 06/19/21 10:00 Pulse 64 06/19/21 10:00 Resp 16 06/19/21 10:00 BP 149/70 H 06/19/21 10:00 Pulse Ox 100 06/19/21 10:00 Testing Laboratory Results 06/19/21 08:15 06/19/21 08:15 PT 9.9 Seconds (9.0-12.0) 06/19/21 08:15 INR 1.0 (0.9-1.1) 06/19/21 08:15 Urine Color Yellow 06/19/21 08:15 Urine Appearance Clear (Clear) 06/19/21 08:15 Urine pH 5.5 (4.5-7.5) 06/19/21 08:15 Ur Specific [place] 1.024 (1.000-1.030) 06/19/21 08:15 Urine Protein Negative (Negative) 06/19/21 08:15 Urine Glucose (UA) Negative (Negative) 06/19/21 08:15 Urine Ketones Negative (Negative) 06/19/21 08:15 Urine Nitrite Negative (Negative) 06/19/21 08:15 Ur Leukocyte Esterase 2+ (Negative) H 06/19/21 08:15 Urine WBC (Auto) 10-30 /hpf (0-5) H 06/19/21 08:15 Urine RBC (Auto) 0-4 /hpf (0-4) 06/19/21 08:15 U Hyaline Cast (Auto) 1-5 /lpf (0-5) 06/19/21 08:15 U Epithel Cells (Auto) 20-30 /lpf (0-5) H 06/19/21 08:15 Urine Bacteria (Auto) Negative (Negative) 06/19/21 08:15 06/19/21 10:46 POC Glucose 78 Electrocardiogram Date: 05/17/21 Findings: + NSR @ (At 69;low voltage QRS) and + pertinent finding Chest X-Ray Date: 05/17/21 Findings: + NAD and + cardiomegaly (mod.)
[2021-06-19] MEDS: INSULIN ASPART PER UNIT SC SCH ×3 (12:57→21:18)
--- NOTE | 2021-06-19 13:30 | Magnetic Resonance Report ---
MR lumbar spine wo con CLINICAL HISTORY: Worsening low back pain radiating into the left leg with left leg numbness. COMPARISON: None. TECHNIQUE: Multiplanar multisequence images of the Lumbar Spine were performed without contrast. FINDINGS: There is no evidence for vertebral body fracture. The heights of the vertebral bodies are maintained. The vertebral bodies are in anatomic alignment. Homogeneous marrow signal is seen without evidence f or marrow edema or marrow replacement. T12-L1: The disc space height is maintained. There are no focal disc protrusions or extrusions ident ified. The thecal sac and epidural fat are maintained. The neural foramen are patent bilaterally. Th ere is no evidence for nerve root encroachment. The facet joints are within normal limits. L1-2: The disc space height is maintained. There are no focal disc protrusions or extrusions identi fied. The thecal sac and epidural fat are maintained. The neural foramen are patent bilaterally. The re is no evidence for nerve root encroachment. The facet joints are within normal limits. L2-3: The disc space height is maintained. There are no focal disc protrusions or extrusions identi fied. The thecal sac and epidural fat are maintained. The neural foramen are patent bilaterally. The re is no evidence for nerve root encroachment. The facet joints are within normal limits. L3-4: The disc space height is maintained. There are no focal disc protrusions or extrusions identi fied. The thecal sac and epidural fat are maintained. The neural foramen are patent bilaterally. The re is no evidence for nerve root encroachment. The facet joints are within normal limits. L4-5: The disc space height is maintained. There are no focal disc protrusions or extrusions identi fied. The thecal sac and epidural fat are maintained. The neural foramen are patent bilaterally. The re is no evidence for nerve root encroachment. Mild hypertrophic facet joint disease is seen bilatera lly. L5-S1: There is moderate disc space narrowing and disc desiccation. There is a 7 to 8 mm left parac entral disc protrusion/herniation present. Due to the increase amount of epidural fat surrounding th e thecal sac, there is no encroachment upon the thecal sac. However, there is encroachment upon the l eft S1 nerve root within the lateral recess with mild swelling of the nerve root. The neural foramen are patent bilaterally. There is no other evidence for nerve root encroachment. Mild hypertrophic fac et joint disease is seen bilaterally. IMPRESSION: 1. Left paracentral disc protrusion/herniation at L5-S1 encroaching upon the left S1 nerve root withi n the lateral recess as described. 2. Hypertrophic facet joint disease is also seen at the lower 2 disc space levels. ACT 112: Negative or not required by law. Electronically signed by: Sudarshan Truong M.D. 06/19/2021 1:29 PM
[2021-06-19] MEDS: ASPIRIN 81 MG ECTAB PO SCH (20:39)
[2021-06-19] MEDS: INSULIN GLARGINE SOLOSTAR 100 UNITS/ML 3 ML PEN SC SCH (21:18)
[2021-06-20] MEDS ORDERED: Nursing to Pharmacy Communication SCH (01:15)
[2021-06-20] MEDS: oxyCODONE HCL IR 5 MG TAB (IMMEDIATE RELEASE) PO PRN ×3 (03:53→19:21)
[2021-06-20] MEDS ORDERED: ceFAZolin 2000MG 2,000 MG/15 ML SYR IV SCH (06:00)
[2021-06-20] MEDS: INSULIN ASPART PER UNIT SC SCH ×4 (06:02→20:49)
[2021-06-20] MEDS: FLUoxetine HCL 20 MG CAP PO SCH (08:09)
[2021-06-20] MEDS: GABAPENTIN 100 MG CAP PO SCH ×2 (08:09→20:47)
[2021-06-20] MEDS: lisinopril 20 MG TAB PO SCH (08:10)
--- NOTE | 2021-06-20 08:55 | Pharmacy Report ---
Pharmacy Glycemic Short Note 2 - Date of Service June 20, 2021 - Glycemic Short BSG Results (Last 24 hours): 06/19/21 06/19/21 06/19/21 08:15 10:46 12:45 Glucose 79 POC Glucose 78 141 H 06/19/21 06/19/21 06/19/21 16:52 16:54 20:27 Glucose POC Glucose 65 L* 71 159 H 06/20/21 05:46 Glucose POC Glucose 140 H OUTPATIENT ANTIDIABETIC REGIMEN: * Tresiba 50 units HS * Actos 30 mg daily * Metformin 1 gm PO BID * HbA1c: 7.6% (05/17/21) ASSESSMENT: 06/20/21 * BSGs yesterday of 79, 141, 65, and 159 mg/dL * Received 50% of home basal dose last evening (25 units) in anticipation for surgery today * Spinal decompression/fusion tentatively planned for today, now rescheduled to tomorrow morning * Will continue with reduced Lantus scale this evening in anticipation for NPO again tomorrow * Diet restarted with lunch today Background: * Ms Black is a 65 y/o F with a PMH of T2DM admitted for spinal surgery tomorrow. * Patient takes Lantus 50 units HS - this most likely describes her entire insulin requirements for the day. BSG this morning was 79 mg/dL. * For tonight, since NPO tomorrow, order Lantus 25 units tonight (Lantus 30 units if BSG 180 mg/dL or greater). * Novolog weight-based stress 2-3. PLAN FOR INPATIENT GLYCEMIC CONTROL: * Hold outpatient oral diabetes medications * Basal insulin * Lantus 0-25 units SC HS (see EHR for details) * Bolus insulin - loosen * NovoLog per scale ACHS or Q6hrs while NPO * Goal Range: Low 110 mg/dL - High 140 mg/dL * Correction Factor: 25 mg/dL/unit * Nutritional / Prandial insulin per carb ratio of 1 unit per 8 grams CHO consumed PLAN FOR DISCHARGE: * TBD
[2021-06-20] MEDS ORDERED: FLUoxetine HCL 10 MG CAP PO SCH (09:00)
[2021-06-20] MEDS: SODIUM CHLORIDE 0.9% 1000ML 1,000 ML IV SCH (12:43)
--- NOTE | 2021-06-20 14:42 | Orthopedic Progress Note ---
Date of Service June 20, 2021 Assessment & Plan (1) Lumbar radiculopathy: Plan: Updated MRI lumbar spine performed yesterday continues to demonstrate disc degeneration protrusion with herniation at L5-S1 the left. There is marked advanced lumbar epidural lipomatosis at the L5-S1 level also contributing to neural encroachment most likely explaining her bilateral leg pain. This point she continues to demonstrate progressive neuro deficit and continued radiculo barrie and is in urgent need of lumbar decompression fusion L5-S1. I will make her n.p.o. after midnight and plan for surgery in the a.m. Admission and Anticipated Discharge Date Admission Date: June 19, 2021 Subjective Patient continues note back in with bilateral leg pain left worse than right. She is concerned about pushoff on the left foot describing progressive deficits to plantar flexion on the left. Physical Exam Physical Exam: Patient is able to sit at the bedside. She exhibits 4-/5 left plantar flexion compared to 5 or 5 on the right. Dorsiflexion is symmetric and intact as well as quadriceps. Sensory deficits to touch to lower extremities. Deep tendon reflexes diminished. Results & Data ([facility]) Vital Signs (Past 12 Hours) Vital Signs Temp Pulse Resp BP Pulse Ox 06/20/21 07:43 147/72 H 06/20/21 07:14 36.4 C L 70 16 150/73 H 99
--- NOTE | 2021-06-20 15:48 | Hospitalist Progress Note ---
Date of Service June 20, 2021 Assessment & Plan (1) Spinal stenosis of lumbar region with radiculopathy: (2) HTN (hypertension): (3) DM type 2 (diabetes mellitus, type 2): Plan: This is a 65-year-old female who has a significant past medical history of T2DM, HTN, Anxiety/Depression, hx of GABRIEL not using CPAP who presents to ED due to worsening low back pain with radicular symptoms and stool incontinence for several weeks. Spinal stenosis of lumbar region with radiculopathy Lumbar spine MRI shows Left paracentral disc protrusion/herniation at L5-S1 encroaching upon the left S1 nerve root within the lateral recess Dr. Espinosa on board Plan to undergo a lumbar decompression and fusion of L5-S1 tomorrow N.p.o. after midnight Further management as per per Dr. Espinosa T2DM Hold Tresiba, Metformin and Actos Glycemic pharmacy consult placed by admitting team Appreciate pharmacy assistance and blood glucose management last a1c 7.6 on 05/17/21 Hypertension Blood pressure controlled at 149/70 home med - Lisinopril/HCTZ will hold HCTZ component until reevaluated postoperatively Depression with anxiety Continue Prozac Mood stable DVT ppx: SCD/TEDS per primary PCP: Heidi Stanford, pt resides near [place], [place] Thank you for this consultation. We will follow the patient with you during their hospital stay. You can reach a member of the [facility] Hospitalist Team 09/12 via hospitalist role on tiger text. Admission and Anticipated Discharge Date Admission Date: June 19, 2021 Supervising Physician Co-Signing Physician Notes Attending addendum: The patient was seen and examined in medical floor She has back pain with radiculopathy and is planned for surgery tomorrow Pain is reasonably controlled with pain medication On examination Lying in bed comfortably Hemodynamically stable Chest clear to auscultate bilaterally Heart-S1-S2, 2/6 ESM over precordium Abdomen-benign Extremities-negative for any edema Her labs, imaging studies reviewed Has back pain radiculopathy and will require lumbar decompression and fusion Agree with assessment and plan as outlined above by Alem Mondragon Subjective Patient seen and examined. Follow-up for medical management, planned upcoming back surgery. Patient reports pain is currently well controlled with current pain medication regimen. Denies chest pain shortness of breath. No abdominal pain or nausea. Review of Systems Review of Systems: ROS per HPI, all other systems reviewed and negative Physical Exam Constitutional: WD/WN, vitals as above Respiratory: normal respiratory effort, lungs clear to auscultation Cardiovascular: Rate/Rhythm: regular rate and regular rhythm Vessels: normal peripheral pulses Extremities: no edema Musculoskeletal: Strength strong and equal BLE Skin: no rashes, warm and dry Neurologic: no focal motor deficits Psychiatric: A+Ox3, euthymic affect Results & Data Results & Data ([facility]) Vital Signs (Past 12 Hours) Vital Signs Temp Pulse Resp BP Pulse Ox 06/20/21 14:47 36.4 C L 77 16 137/80 94 06/20/21 07:43 147/72 H 06/20/21 07:14 36.4 C L 70 16 150/73 H 99
[2021-06-20] MEDS: ASPIRIN 81 MG ECTAB PO SCH (20:47)
[2021-06-20] MEDS: INSULIN GLARGINE SOLOSTAR 100 UNITS/ML 3 ML PEN SC SCH (20:52)
[2021-06-21] MEDS: SODIUM CHLORIDE 0.9% 1000ML 1,000 ML IV SCH (02:26)
[2021-06-21] MEDS ORDERED: ceFAZolin 2000MG 2,000 MG/15 ML SYR IV SCH (06:00)
[2021-06-21] MEDS ORDERED: MIDAZOLAM HCL 1 MG/ML 2ML VIAL ONE (07:28)
[2021-06-21] MEDS ORDERED: HYDROmorphone INJ 2 MG/ML SYR/VIAL ONE (07:28)
[2021-06-21] MEDS ORDERED: SUGAMMADEX SODIUM 200 MG/2 ML VIAL IV ONE (07:33)
--- NOTE | 2021-06-21 07:48 | History & Physical Bridge Note ---
Date of Service June 21, 2021 History & Physical Bridge Note I have examined the patient, reviewed the History & Physical and in the interval since the performance of the History & Physical I have noted the following changes of clinical significance: Patient has severe lumbar epidural lipomatosis and subsequent radiculopathy with obvious and progressive motor deficit to the left foot secondary to S1 neural compression. In order to prevent permanent damage recommending emergent decompression fusion.
[2021-06-21] MEDS: lisinopril 20 MG TAB PO SCH (08:07)
[2021-06-21] MEDS: GABAPENTIN 100 MG CAP PO SCH ×2 (08:07→20:54)
[2021-06-21] MEDS: FLUoxetine HCL 20 MG CAP PO SCH (08:07)
[2021-06-21] MEDS: INSULIN ASPART PER UNIT SC SCH ×4 (08:08→21:00)
[2021-06-21] MEDS ORDERED: PROMETHAZINE HCL 6.25 MG in SODIUM CHLORIDE 0.9% 50 ML IV PRN (08:39)
[2021-06-21] MEDS ORDERED: ONDANSETRON INJ 2 MG/ML 2 ML VIAL IV PRN ×2 (08:39→11:31)
[2021-06-21] MEDS ORDERED: HYDROmorphone INJ 2 MG/ML SYR/VIAL IV PRN (08:39)
[2021-06-21] MEDS ORDERED: ATROPINE SULFATE 0.1 MG/ML 10ML SYR IV PRN (08:39)
[2021-06-21] MEDS ORDERED: ePHEDrine sulfate 50 MG/ML AMP IV PRN (08:39)
[2021-06-21] MEDS ORDERED: fentaNYL citrate 100 MCG/2 ML VIAL IV PRN (08:39)
[2021-06-21] MEDS ORDERED: PROPOFOL IV EMULSION 10 MG/ML 20 ML VIAL IV ONE (09:12)
[2021-06-21] MEDS ORDERED: ONDANSETRON INJ 2 MG/ML 2 ML VIAL ONE (09:12)
[2021-06-21] MEDS ORDERED: LIDOCAINE 2% 2 ML VIAL/AMP(20MG/ML) INFIL ONE (09:12)
[2021-06-21] MEDS ORDERED: DEXAMETHASONE SOD INJ 4 MG/ML VIAL ONE (09:12)
[2021-06-21] MEDS ORDERED: ROCURONIUM BROMIDE 10 MG/ML 5 ML VIAL IV ONE (09:12)
[2021-06-21] MEDS ORDERED: ePHEDrine sulfate 50 MG/ML SYR ONE (09:12)
[2021-06-21] MEDS: BUPIVACAINE 0.5 % 5 MG/1 ML MPF 30ML VIAL ONE (09:16)
[2021-06-21] MEDS ORDERED: ceFAZolin 330 MG/ML 1 GM VIAL ONE (10:03)
[2021-06-21] MEDS ORDERED: EPINEPHrine INJ 1 MG/ML AMP ONE (10:03)
[2021-06-21] MEDS ORDERED: FLOSEAL HEMOSTATIC MATRIX 10ML TOP ONE (10:12)
--- NOTE | 2021-06-21 10:18 | Pharmacy Report ---
Pharmacy Glycemic Short Note 2 - Date of Service June 21, 2021 - Glycemic Short BSG Results (Last 24 hours): 06/20/21 06/20/21 06/20/21 12:10 17:10 20:43 POC Glucose 98 167 H 105 H 06/21/21 06/21/21 06/21/21 00:16 06:06 08:34 POC Glucose 126 H 126 H 117 H OUTPATIENT ANTIDIABETIC REGIMEN: * Tresiba 50 units HS * Actos 30 mg daily * Metformin 1 gm PO BID * HbA1c: 7.6% (05/17/21) ASSESSMENT: 06/21/21 * Patient received only 5 units of insulin yesterday, basal dose held last evening * Fasting BSG 117 mg/dL - patient to have surgery today * Appears dexamethasone pulled in ER, therefore anticipate steroid induced hyperglycemia * Will resume basal insulin later today as likely diet ordered postop. Will assess bsgs postop to determine if CF/CR should be tightened 06/20/21 * BSGs yesterday of 79, 141, 65, and 159 mg/dL * Received 50% of home basal dose last evening (25 units) in anticipation for surgery today * Spinal decompression/fusion tentatively planned for today, now rescheduled to tomorrow morning * Will continue with reduced Lantus scale this evening in anticipation for NPO again tomorrow * Diet restarted with lunch today Background: * Ms Black is a 65 y/o F with a PMH of T2DM admitted for spinal surgery tomorrow. * Patient takes Lantus 50 units HS - this most likely describes her entire insulin requirements for the day. BSG this morning was 79 mg/dL. * For tonight, since NPO tomorrow, order Lantus 25 units tonight (Lantus 30 units if BSG 180 mg/dL or greater). * Novolog weight-based stress 2-3. PLAN FOR INPATIENT GLYCEMIC CONTROL: * Hold outpatient oral diabetes medications * Basal insulin * Lantus 20-30 units SC with dinner (see EHR for details) * Bolus insulin * NovoLog per scale ACHS or Q6hrs while NPO * Goal Range: Low 110 mg/dL - High 140 mg/dL * Correction Factor: 25 mg/dL/unit * Nutritional / Prandial insulin per carb ratio of 1 unit per 8 grams CHO consumed PLAN FOR DISCHARGE: * A1c 7.6% - reasonable to continue home DM regimen as long as no contraindications present
--- NOTE | 2021-06-21 10:23 | Operative Report ---
Post Operative Report Pre & Post Diagnosis Operation Date: 06/20/21 08:50 <No data on this case meets the specified criteria> Operation Date: 06/21/21 08:15 Pre-Op Diagnosis: Spinal stenosis of lumbar region with radiculopathy L5-S1 Post-Op Diagnosis: Spinal stenosis of lumbar region with radiculopathy L5-S1 I identified the patient and participated in the time-out.: Yes Procedure Operation Date: 06/20/21 08:50 <No data on this case meets the specified criteria> Operation Date: 06/21/21 08:15 Actual Procedures #1 lumbar decompression bilaterally facetectomies foraminotomies L4-L5 L5-S1. #2 posterior spinal fusion L5-S1. #3 placement posterior instrumentation L5-S1. #4 interbody fusion L5-S1. #5 placement peek cage 11 x 22 mm at L5-S1. #6 placement locally harvested morselized autograft in the posterior gutters. #7 placement infuse collagen sponge, master graft in the posterior gutters and I factor and interbody space. Surgeon Tom Espinosa, DO [employer] Gabriela Fairbanks Estimated Blood Loss 100 Findings See Below The patient is 5 foot 2 weighing over 92 kg with a BMI in excess of 37. The patient's body habitus did contribute to significant technical difficulty required deepest retractors longus instruments in order to perform her procedure. This had at least 50% increase the operative time. Specimens None Indications This is a 65-year-old female who presents above-mentioned diagnosis after failing course of nonoperative care she is here for surgical invention. Description of Procedure Patient was met with identified informed consent obtained. Patient was then taken to the operative suite underwent ablation placed in a prone position the Wilner table atop Edgard frame. All bony prominences well-padded eyes inspected to ensure no external pressure placed upon the. This point the lumbar spine was prepped and draped in normal sterile fashion. Sharp dissection with the assistance of Bovie cautery was performed down to and exposing the lamina and transverse process of L5 and sacral ala bilaterally. From caudal cephalad fashion complete laminectomy L5 partial laminectomy of L4 was performed including bilateral medial facetectomies and foraminotomies addressing severe epidural lipomatosis and lateral recess stenosis. After complete decompression pedicle screws were placed at L5 and S1 levels bilaterally with assistance of fluoroscopy and the properly sized kate placed. By way of a transforaminal portion left complete discectomy of L5-S1 was performed endplates curetted to subcortical bleeding bone and then 211 x 22 mm peek cage filled I factor tapped in position. I did note significant scarring of the traversing S1 nerve root to adhesed disc fragments. These were loosened and removed to free up the nerve root. Rods were then compressed locked in final position bilaterally. The transverse process of L5 and sacral ala burred to subcortical bleeding bone. Infuse collagen sponge master graft local autograft was placed in the posterior gutters. 15 round CONOR drain inserted. The incision was then closed with 1 Vicryl the fascia 2-0 Vicryl subcutaneously and 4 Monocryl for final skin closure. Steri-Strip sterile dressings placed. Patient waken taken back in stable condition. Please note spinal cord monitoring was utilized at the procedure no changes noted lastly Gabriela Fairbanks was present at the entire procedure involved in place positioning complex portion of the surgery and fascial closure. I attest to the content of the Intraoperative Record and any orders documented therein. Any exceptions are noted below.
--- NOTE | 2021-06-21 10:45 | Fluoroscopy Report ---
INTRAOPERATIVE RADIOGRAPHS CLINICAL HISTORY: L5-S1 spinal fusion. Fluoroscopy time: 22 seconds. FINDINGS: 2 spot fluoroscopic views of the lumbar spine are presented. There has been discectomy at L 5-S1 with laminectomy and posterior fusion at this level. Interpedicular screws are in place. The ort hopedic hardware appears intact. IMPRESSION: Intraoperative images from L5-S1 spinal fusion as above. Electronically signed by: Mac Woodard M.D. 06/21/2021 10:43 AM
--- NOTE | 2021-06-21 11:17 | Anesthesiology Progress Note ---
Date of Service June 21, 2021 Anesthesia Post Procedure Vital Signs Vital Signs: Temp Pulse Pulse Resp BP Pulse Ox 06/21/21 11:10 98 H 18 145/78 H 100 06/21/21 11:00 87 11 L 149/84 H 92 06/21/21 10:50 85 18 145/56 H 94 06/21/21 10:42 36.4 C L 99 H 13 113/58 L 97 06/21/21 08:16 36.9 C 71 20 150/77 H 98 06/21/21 07:59 36.5 C 62 16 123/67 98 06/21/21 00:23 36.6 C 79 16 145/73 H 97 06/20/21 14:47 36.4 C L 77 16 137/80 94 Pain Intensity Back: Pain Intensity: 1 Transfer of Care Handoff Completed per policy Notes Mental Status: alert / awake / arousable Patient Amnestic to Procedure: Yes Nausea / Vomiting: adequately controlled Pain: adequately controlled Airway Patency, RR, SpO2: stable & adequate BP & HR: stable & adequate Hydration State: stable & adequate Anesthetic Complications: no major complications apparent
[2021-06-21] MEDS ORDERED: PROMETHAZINE HCL 12.5 MG in SODIUM CHLORIDE 0.9% 50 ML IV PRN (11:31)
[2021-06-21] MEDS ORDERED: DO NOT ADMINISTER PNEUMOCOCCAL VACCINE PRN (11:31)
[2021-06-21] MEDS ORDERED: HYDROmorphone INJ 1 MG/ML SYRINGE IV PRN (11:31)
[2021-06-21] MEDS ORDERED: NALOXONE HCL 0.4 MG/1 ML VIAL/CARP IV PRN (11:31)
[2021-06-21] MEDS ORDERED: diphenhydrAMINE Capsule 25 MG CAP PO PRN (11:31)
[2021-06-21] MEDS ORDERED: DO NOT ADMINISTER FLU VACCINE PRN (11:31)
[2021-06-21] MEDS ORDERED: SODIUM CHLORIDE 0.9% 1000ML 1,000 ML IV SCH (11:31)
[2021-06-21] MEDS ORDERED: METOCLOPRAMIDE HCL INJ 5 MG/ML 2 ML VIAL IV PRN (11:31)
[2021-06-21] MEDS ORDERED: ALUMINUM/MAGNESIUM SUSP 30 ML UDC PO PRN (11:31)
[2021-06-21] MEDS ORDERED: bisacodyL 10 MG SUPP PR PRN (11:31)
[2021-06-21] MEDS ORDERED: LORazepam 0.5 MG/1 ML VIAL IV PRN (11:31)
[2021-06-21] MEDS ORDERED: FAMOTIDINE 20 MG TAB PO PRN (11:31)
[2021-06-21] MEDS ORDERED: hydrOXYzine HCl 25 MG TAB PO PRN (11:31)
[2021-06-21] MEDS ORDERED: LORazepam 0.5 MG TAB PO PRN (11:31)
[2021-06-21] MEDS ORDERED: ACETAMINOPHEN 1,000 MG/100 ML VIAL IV PRN (11:31)
[2021-06-21] MEDS ORDERED: HYDROmorphone INJ 0.5 MG/0.5 ML SYR IV PRN (11:31)
[2021-06-21] MEDS ORDERED: MAGNESIUM HYDROXIDE SUSP 30 ML UDC PO PRN (11:31)
[2021-06-21] MEDS ORDERED: SOD PHOSPHATE/SOD BIPHOSPHATE ENEMA 132 ML BTL PR PRN (11:31)
[2021-06-21] MEDS ORDERED: ONDANSETRON 4 MG OD TAB PO PRN (11:31)
[2021-06-21] MEDS ORDERED: traMADol HCL 50 MG TABLET PO PRN (11:31)
[2021-06-21] MEDS: ceFAZolin 2000MG 2,000 MG/15 ML SYR IV SCH ×2 (13:52→22:33)
[2021-06-21] MEDS: oxyCODONE HCL IR 5 MG TAB (IMMEDIATE RELEASE) PO PRN ×2 (14:54→19:34)
--- NOTE | 2021-06-21 16:01 | Hospitalist Progress Note ---
Date of Service June 21, 2021 Assessment & Plan (1) Spinal stenosis of lumbar region with radiculopathy: (2) HTN (hypertension): (3) DM type 2 (diabetes mellitus, type 2): Plan: This is a 65-year-old female who has a significant past medical history of T2DM, HTN, Anxiety/Depression, hx of GABRIEL not using CPAP who presents to ED due to worsening low back pain with radicular symptoms and stool incontinence for several weeks. Spinal stenosis of lumbar region with radiculopathy POD #0 s/p lumbar decompression bilaterally facetectomies foraminotomies L4-L5 L5-S1 and posterior spinal fusion L5-S1 by Dr. Espinosa Per ortho for pain control, wound care, anticoagulation and activities Monitor H&H (EBL 100ml, pre-op hgb 13.1) Continue incentive spirometry, PT/OT when appropriate T2DM Hold Tresiba, Metformin and Actos Glycemic pharmacy consult placed by admitting team Appreciate pharmacy assistance and blood glucose management Last a1c 7.6 on 05/17/21 Hypertension Blood pressure controlled Lisinopril-hctz held pre-operatively today Optimize pain control, plan to resume lisinopril-hctz tomorrow based on AM labs Depression with anxiety Continue Prozac Mood stable DVT ppx: SCD/TEDS per primary PCP: Heidi Stanford, pt resides near [place], [place] Patient seen in collaboration with Dr. Mondragon. Please see addendum. Thank you for this consultation. We will follow the patient with you during their hospital stay. You can reach a member of the [facility] Hospitalist Team 09/12 via hospitalist role on tiger text. Admission and Anticipated Discharge Date Admission Date: June 19, 2021 Supervising Physician Co-Signing Physician Notes Attending addendum The patient was seen and examined in medical floor She is status post lumbar spinal decompression fusion Has been ambulating with difficulty some pain Denies any chest pain, palpitation, shortness of breath or any nausea and or vomiting On examination Hemodynamically stable with blood pressure on the upper side at 151/72 Chest-clear to auscultate bilaterally Heart-S1, S2 regular Abdomen -benign Extremities-negative for any edema Her labs and imaging studies reviewed Acute on chronic back pain radiculopathy status post lumbar surgery Remains stable medically and agree with assessment and plan as outlined above by AIDEN Laura Dr Subjective Patient seen and examined in 308-1. POD#0 s/p lumbar decompression bilaterally facetectomies foraminotomies L4-L5 L5-S1 and posterior spinal fusion L5-S1.Pain is well controlled, denies any pain or paresthesias in BLE. Tolerating clears without issue. No F/C, CP, SOB, N/V, abdominal pain. Ambulated to restroom to urinate post-operatively. Review of Systems Review of Systems: ROS per HPI, all other systems reviewed and negative Physical Exam Physical Exam: Gen: WD/WN, NAD, lying in bed, A&Ox3, appears comfortable HEENT: Normocephalic, atraumatic, conjunctivae moist, sclerae anicteric, mucous membranes moist Lung: Clear to Auscultation bilaterally, no wheezes/rales/rhonchi Heart: Regular rate, regular rhythm, no murmurs, rubs, or gallops Abdomen: Soft, NT, ND +BS x 4 Extremities: Spinal dressing c/d/i. CONOR drain visualized. No edema Skin: Warm, no rash Results & Data Results & Data ([facility]) Vital Signs (Past 12 Hours) Vital Signs Temp Pulse Pulse Pulse Resp BP Pulse Ox 06/21/21 15:30 36.5 C 89 16 151/72 H 94 06/21/21 14:45 36.3 C L 88 16 131/76 96 06/21/21 13:27 36.5 C 87 16 128/73 94 06/21/21 12:26 88 16 157/78 H 91 06/21/21 12:00 36.3 C L 85 16 148/83 H 06/21/21 11:33 36.4 C L 90 16 156/84 H 96 06/21/21 11:20 36.6 C 88 14 150/78 H 94 06/21/21 11:10 98 H 18 145/78 H 100 06/21/21 11:00 87 11 L 149/84 H 92 06/21/21 10:50 85 18 145/56 H 94 06/21/21 10:42 36.4 C L 99 H 13 113/58 L 97 06/21/21 08:16 36.9 C 71 20 150/77 H 98 06/21/21 07:59 36.5 C 62 16 123/67 98
[2021-06-21] MEDS ORDERED: INSULIN GLARGINE SOLOSTAR 100 UNITS/ML 3 ML PEN SC SCH (18:00)
[2021-06-21] MEDS: ASPIRIN 81 MG ECTAB PO SCH (20:54)
[2021-06-21] MEDS: DOCUSATE SODIUM/SENNA 50/8.6MG TAB PO SCH (21:00)
[2021-06-22] MEDS ORDERED: INSULIN ASPART PER UNIT SC SCH
[2021-06-22] MEDS: oxyCODONE HCL IR 5 MG TAB (IMMEDIATE RELEASE) PO PRN ×3 (03:59→19:49)
[2021-06-22] MEDS: POLYETHYLENE (MIRALAX) 17 GM PACK PO SCH ×4 (05:32→21:19)
[2021-06-22] MEDS: ACETAMINOPHEN 500 MG TAB PO PRN ×2 (05:35→22:41)
[2021-06-22 07:28] LABS: Hematocrit (blood only) 34.6 % (37-47); Hemoglobin 10.9 g/dL (12.0-16.0); Immature Granulocytes # (auto) 0.02 K/uL (0.00-0.02); Immature Granulocytes % (auto) 0.2 %; Lymphocytes # (auto) 1.14 K/uL (1.2-3.4); Mean Corpuscular Hemoglobin 29.4 pg (25-34); Mean Corpuscular Hgb Conc 31.5 g/dL (32-36); Mean Corpuscular Volume 93.3 fL (80-100); Mean Platelet Volume 8.9 fL (7.4-10.4); Monocytes # (auto) 0.96 K/uL (0.11-0.59); Monocytes % (auto) 10.9 %; Neutrophils # (auto) 6.65 K/uL (1.4-6.5); Neutrophils % (auto) 75.9 %; Platelet Count 229 K/uL (130-400); RDW Coefficient of Variation 13.6 % (11.5-14.5); RDW Standard Deviation 46.6 fL (36.4-46.3); Red Blood Count 3.71 M/uL (4.2-5.4); White Blood Count 8.77 K/uL (4.8-10.8)
[2021-06-22 07:58] LABS: BUN Creatinine Ratio 18.5 (10-20); Calcium 8.4 mg/dl (8.5-10.1); Creatinine Clr Calc Pharmacy 111.7 ml/min; Est GFR (African American) 115.6 ml/min; Est GFR (Non-African American) 99.7 ml/min; Potassium 3.8 mmol/L (3.5-5.1)
[2021-06-22] MEDS ORDERED: NovoLIN-N (NPH) PER UNIT CHARGE SQ SCH (09:00)
[2021-06-22] MEDS: FLUoxetine HCL 20 MG CAP PO SCH (09:14)
[2021-06-22] MEDS: GABAPENTIN 100 MG CAP PO SCH ×2 (09:14→21:09)
[2021-06-22] MEDS: INSULIN ASPART PER UNIT SC SCH ×4 (09:14→21:12)
[2021-06-22] MEDS: dexAMETHasone 6 MG in SYRINGE 0 ML IV SCH (09:15)
--- NOTE | 2021-06-22 10:38 | Pharmacy Report ---
Pharmacy Glycemic Short Note 2 - Date of Service June 22, 2021 - Glycemic Short BSG Results (Last 24 hours): 06/21/21 06/21/21 06/21/21 10:42 11:49 16:59 Glucose POC Glucose 146 H 166 H 173 H 06/21/21 06/21/21 06/22/21 20:48 23:58 07:12 Glucose 179 H POC Glucose 182 H 121 H 06/22/21 08:12 Glucose POC Glucose 174 H OUTPATIENT ANTIDIABETIC REGIMEN: * Tresiba 50 units HS * Actos 30 mg daily * Metformin 1 gm PO BID * HbA1c: 7.6% (05/17/21) ASSESSMENT: 06/22/21 * Patient received total of 44 units of insulin yesterday, of which 30 units were basal insulin * Fasting BSG 174 mg/dL - likely related to steroids given yesterday, will continue with 30 units of basal tonight * Patient continues on dex 6 mg iv daily - will give ~0.2 unit/kg NPH to help with BSGs rises throughout the day from steroids 06/21/21 * Patient received only 5 units of insulin yesterday, basal dose held last evening * Fasting BSG 117 mg/dL - patient to have surgery today * Appears dexamethasone pulled in ER, therefore anticipate steroid induced hyperglycemia * Will resume basal insulin later today as likely diet ordered postop. Will assess bsgs postop to determine if CF/CR should be tightened 06/20/21 * BSGs yesterday of 79, 141, 65, and 159 mg/dL * Received 50% of home basal dose last evening (25 units) in anticipation for surgery today * Spinal decompression/fusion tentatively planned for today, now rescheduled to tomorrow morning * Will continue with reduced Lantus scale this evening in anticipation for NPO again tomorrow * Diet restarted with lunch today Background: * Ms Black is a 65 y/o F with a PMH of T2DM admitted for spinal surgery tomorrow. * Patient takes Lantus 50 units HS - this most likely describes her entire insulin requirements for the day. BSG this morning was 79 mg/dL. * For tonight, since NPO tomorrow, order Lantus 25 units tonight (Lantus 30 units if BSG 180 mg/dL or greater). * Novolog weight-based stress 2-3. PLAN FOR INPATIENT GLYCEMIC CONTROL: * Hold outpatient oral diabetes medications * Basal insulin * Lantus 30 units HS * NPH 20 units daily - given with Dexamethasone 6 mg daily * Bolus insulin * NovoLog per scale ACHS or Q6hrs while NPO * Goal Range: Low 110 mg/dL - High 140 mg/dL * Correction Factor: 20 mg/dL/unit * Nutritional / Prandial insulin per carb ratio of 1 unit per 7 grams CHO consumed PLAN FOR DISCHARGE: * A1c 7.6% - reasonable to continue home DM regimen as long as no contraindications present
--- NOTE | 2021-06-22 11:09 | Hospitalist Progress Note ---
Date of Service June 22, 2021 Assessment & Plan (1) Spinal stenosis of lumbar region with radiculopathy: (2) HTN (hypertension): (3) DM type 2 (diabetes mellitus, type 2): Plan: This is a 65-year-old female who has a significant past medical history of T2DM, HTN, Anxiety/Depression, hx of GABRIEL not using CPAP who presents to ED due to worsening low back pain with radicular symptoms and stool incontinence for several weeks. Spinal stenosis of lumbar region with radiculopathy POD #1 s/p lumbar decompression bilaterally facetectomies foraminotomies L4-L5 L5-S1 and posterior spinal fusion L5-S1 by Dr. Espinosa Per ortho for pain control, wound care, anticoagulation and activities Monitor H&H (hgb 10.9, pre-op hgb 13.1) Continue incentive spirometry, PT/OT when appropriate T2DM Hold Tresiba, Metformin and Actos Glycemic pharmacy consult placed by admitting team Appreciate pharmacy assistance and blood glucose management Last a1c 7.6 on 05/17/21 Hypertension Resume Lisinopril today, hctz tomorrow AM Depression with anxiety Continue Prozac Mood stable DVT ppx: SCD/TEDS per primary PCP: Heidi Stanford, pt resides near [place], [place] Patient seen in collaboration with Dr. Mondragon. Please see addendum. Thank you for this consultation. We will follow the patient with you during their hospital stay. You can reach a member of the [facility] Hospitalist Team 09/12 via hospitalist role on tiger text. Admission and Anticipated Discharge Date Admission Date: June 19, 2021 Supervising Physician Co-Signing Physician Notes Attending addendum The patient was seen and examined in medical floor She is a status post lumbar L5-S1 decompression and fusion Still has some pain but has been ambulating with difficulty Her radiculopathic symptoms have been improving On examination No apparent distress at rest Remains hemodynamically stable Her labs reviewed Status post lumbar decompression and fusion remains medically stable Agree with assessment and plan as outlined above by AIDEN Laura Dr Subjective Patient seen and examined in 308-1. POD#1 s/p lumbar decompression bilaterally facetectomies foraminotomies L4-L5 L5-S1 and posterior spinal fusion L5-S1.Pain is well controlled, denies any pain or paresthesias in BLE. No F/C, CP, SOB, N/V, abdominal pain. Ambulating without issue. Passing flatus, no bowel movement post-operatively. Review of Systems Review of Systems: At least ten systems reviewed and negative except as noted in the HPI. Physical Exam Physical Exam: Gen: WD/WN, NAD, lying in bed, A&Ox3, appears comfortable HEENT: Normocephalic, atraumatic, conjunctivae moist, sclerae anicteric, mucous membranes moist Lung: Clear to Auscultation bilaterally, no wheezes/rales/rhonchi Heart: Regular rate, regular rhythm, no murmurs, rubs, or gallops Abdomen: Soft, NT, ND +BS x 4 Extremities: Spinal dressing c/d/i. CONOR drain visualized. No edema Skin: Warm, no rash Results & Data Results & Data ([facility]) Vital Signs (Past 12 Hours) Vital Signs Temp Pulse Pulse Resp BP Pulse Ox 06/22/21 07:36 36.8 C 98 H 18 122/69 98 06/22/21 03:56 36.7 C 101 H 12 112/62 96 06/21/21 23:42 36.6 C 98 H 18 152/81 H 100 Laboratory Results Short CBC 06/22/21 Range/Units 07:12 WBC 8.77 (4.8-10.8) K/uL Hgb 10.9 L (12.0-16.0) g/dL Hct 34.6 L (37-47) % Plt Count 229 (130-400) K/uL BMP 06/22/21 07:12 Sodium 137 Potassium 3.8 Chloride 108 H Carbon Dioxide 25 BUN 10 Creatinine 0.54 L Glucose 179 H Calcium 8.4 L Diagnostic Findings Lumbar Spine MRI 06/19/21 10:01 MR lumbar spine wo con CLINICAL HISTORY: Worsening low back pain radiating into the left leg with left leg numbness. COMPARISON: None. TECHNIQUE: Multiplanar multisequence images of the Lumbar Spine were performed without contrast. FINDINGS: There is no evidence for vertebral body fracture. The heights of the vertebral bodies are maintained. The vertebral bodies are in anatomic alignment. Homogeneous marrow signal is seen without evidence for marrow edema or marrow replacement. T12-L1: The disc space height is maintained. There are no focal disc protrusions or extrusions identified. The thecal sac and epidural fat are maintained. The neural foramen are patent bilaterally. There is no evidence for nerve root encroachment. The facet joints are within normal limits. L1-2: The disc space height is maintained. There are no focal disc protrusions or extrusions identified. The thecal sac and epidural fat are maintained. The neural foramen are patent bilaterally. There is no evidence for nerve root encroachment. The facet joints are within normal limits. L2-3: The disc space height is maintained. There are no focal disc protrusions or extrusions identified. The thecal sac and epidural fat are maintained. The neural foramen are patent bilaterally. There is no evidence for nerve root encroachment. The facet joints are within normal limits. L3-4: The disc space height is maintained. There are no focal disc protrusions or extrusions identified. The thecal sac and epidural fat are maintained. The neural foramen are patent bilaterally. There is no evidence for nerve root encroachment. The facet joints are within normal limits. L4-5: The disc space height is maintained. There are no focal disc protrusions or extrusions identified. The thecal sac and epidural fat are maintained. The neural foramen are patent bilaterally. There is no evidence for nerve root encroachment. Mild hypertrophic facet joint disease is seen bilaterally. L5-S1: There is moderate disc space narrowing and disc desiccation. There is a 7 to 8 mm left paracentral disc protrusion/herniation present. Due to the increase amount of epidural fat surrounding the thecal sac, there is no encroachment upon the thecal sac. However, there is encroachment upon the left S1 nerve root within the lateral recess with mild swelling of the nerve root. The neural foramen are patent bilaterally. There is no other evidence for nerve root encroachment. Mild hypertrophic facet joint disease is seen bilaterally. IMPRESSION: 1. Left paracentral disc protrusion/herniation at L5-S1 encroaching upon the left S1 nerve root within the lateral recess as described. 2. Hypertrophic facet joint disease is also seen at the lower 2 disc space levels. ACT 112: Negative or not required by law. Electronically signed by: Sudarshan Truong M.D. 06/19/2021 1:29 PM Lumbar Spine X-Ray 06/21/21 00:00 INTRAOPERATIVE RADIOGRAPHS CLINICAL HISTORY: L5-S1 spinal fusion. Fluoroscopy time: 22 seconds. FINDINGS: 2 spot fluoroscopic views of the lumbar spine are presented. There has been discectomy at L5-S1 with laminectomy and posterior fusion at this level. Interpedicular screws are in place. The orthopedic hardware appears intact. IMPRESSION: Intraoperative images from L5-S1 spinal fusion as above. Electronically signed by: Mac Woodard M.D. 06/21/2021 10:43 AM
[2021-06-22] MEDS: lisinopril 20 MG TAB PO SCH (11:57)
--- NOTE | 2021-06-22 12:56 | Orthopedic Progress Note ---
Date of Service June 22, 2021 Assessment & Plan (1) Lumbar radiculopathy: Plan: At this time continue physical therapy monitor CONOR operatively discharge home later after this weekend. Admission and Anticipated Discharge Date Admission Date: June 19, 2021 Subjective Back pain controlled leg symptoms improved Physical Exam Physical Exam: Patient is in the chair at the bedside. Is good strength testing. Appears comfortable. Results & Data ([facility]) Vital Signs (Past 12 Hours) Vital Signs Temp Pulse Pulse Resp BP Pulse Ox 06/22/21 11:50 83 133/74 06/22/21 11:12 36.7 C 79 18 148/75 H 96 06/22/21 07:36 36.8 C 98 H 18 122/69 98 06/22/21 03:56 36.7 C 101 H 12 112/62 96
[2021-06-22] MEDS ORDERED: INSULIN GLARGINE SOLOSTAR 100 UNITS/ML 3 ML PEN SC SCH (21:00)
[2021-06-22] MEDS: ASPIRIN 81 MG ECTAB PO SCH (21:09)
[2021-06-22] MEDS: DOCUSATE SODIUM/SENNA 50/8.6MG TAB PO SCH (21:10)
[2021-06-23] MEDS: ACETAMINOPHEN 500 MG TAB PO PRN ×3 (07:56→23:55)
[2021-06-23] MEDS: hydroCHLOROthiazide 25 MG TAB PO SCH (07:58)
[2021-06-23] MEDS ORDERED: NovoLIN-N (NPH) PER UNIT CHARGE SQ ONE (09:00)
--- NOTE | 2021-06-23 09:09 | Orthopedic Progress Note ---
Date of Service June 23, 2021 Assessment & Plan (1) Spinal stenosis of lumbar region with radiculopathy: Plan: This time we will continue physical therapy monitor CONOR output anticipate discharge home tomorrow. Admission and Anticipated Discharge Date Admission Date: June 19, 2021 Subjective Patient's back pain is controlled leg symptoms improved Physical Exam Physical Exam: On exam patient is in the chair at the bedside. She appears comfortable. Is good strength testing. Results & Data ([facility]) Vital Signs (Past 12 Hours) Vital Signs Temp Pulse Resp BP Pulse Ox 06/23/21 08:00 36.6 C 76 16 110/65 99 06/22/21 22:37 36.8 C 95 H 16 131/61 97
[2021-06-23] MEDS: INSULIN ASPART PER UNIT SC SCH ×4 (09:28→21:06)
[2021-06-23] MEDS: dexAMETHasone 6 MG in SYRINGE 0 ML IV SCH (09:29)
[2021-06-23] MEDS: FLUoxetine HCL 20 MG CAP PO SCH (09:30)
[2021-06-23] MEDS: lisinopril 20 MG TAB PO SCH (09:30)
[2021-06-23] MEDS: GABAPENTIN 100 MG CAP PO SCH ×2 (09:30→20:40)
--- NOTE | 2021-06-23 15:32 | Hospitalist Progress Note ---
Date of Service June 23, 2021 Assessment & Plan (1) Spinal stenosis of lumbar region with radiculopathy: (2) HTN (hypertension): (3) DM type 2 (diabetes mellitus, type 2): Plan: This is a 65-year-old female who has a significant past medical history of T2DM, HTN, Anxiety/Depression, hx of GABRIEL not using CPAP who presents to ED due to worsening low back pain with radicular symptoms and stool incontinence for several weeks. Spinal stenosis of lumbar region with radiculopathy POD #2 s/p lumbar decompression bilaterally facetectomies foraminotomies L4-L5 L5-S1 and posterior spinal fusion L5-S1 by Dr. Espinosa Per ortho for pain control, wound care, anticoagulation and activities Monitor H&H (hgb 10.9, pre-op hgb 13.1) Continue incentive spirometry, PT/OT when appropriate Pain is much improved and likely discharge tomorrow T2DM Hold Tresiba, Metformin and Actos Glycemic pharmacy consult placed by admitting team Appreciate pharmacy assistance and blood glucose management Last a1c 7.6 on 05/17/21 Blood sugar is controlled Hypertension Resume Lisinopril today, hctz tomorrow AM Depression with anxiety Continue Prozac Mood stable DVT ppx: SCD/TEDS per primary PCP: Heidi Stanford, pt resides near [place], [place] Medically stable to be discharged Admission and Anticipated Discharge Date Admission Date: June 19, 2021 Subjective 06/23/2021 The patient was seen and examined in medical floor She still complains to have some back pain but the numbness in the legs have been better She will be going home tomorrow Review of Systems Review of Systems: All systems reviewed and are unremarkable except as noted below Musculoskeletal: Low back pain with radiation Physical Exam Physical Exam: Sitting on a chair without any distress Constitutional: WD/WN, vitals as above Eyes: PERRL, conjunctivae normal, anicteric sclerae ENMT: external ear and nose normal, oropharynx normal Neck: trachea midline, no thyromegaly Respiratory: normal respiratory effort, lungs clear to auscultation Cardiovascular: Rate/Rhythm: regular rate and regular rhythm Vessels: normal peripheral pulses Extremities: no edema Gastrointestinal (Abdomen): Inspection/Auscultation: normal bowel sounds; abdomen not distended Percussion/Palpation: abdomen soft; abdomen nontender Musculoskeletal: Low back pain and tenderness Skin: no rashes, warm and dry Neurologic: no focal motor deficits Psychiatric: A+Ox3, euthymic affect Results & Data Results & Data ([facility]) Vital Signs (Past 12 Hours) Vital Signs Temp Pulse Resp BP Pulse Ox 06/23/21 08:00 36.6 C 76 16 110/65 99 Medications Administered Current Inpatient Medications Acetaminophen (Acetaminophen 500 Mg Tab) 1,000 mg PO Q8H PRN PRN Reason: MILD Pain Scale 1,2,3 & Pre PT Stop: 07/21/21 11:30 Last Admin: 06/23/21 07:56 Dose: 1,000 mg Documented by: Al Hydrox/Mg Hydrox/Simethicone (Aluminum/Magnesium Susp 30 Ml Udc) 30 ml PO Q6H PRN PRN Reason: Dyspepsia Stop: 07/21/21 11:30 Aspirin (Aspirin 81 Mg Ectab) 81 mg PO QPM [facility] Stop: 07/19/21 20:59 Last Admin: 06/22/21 21:09 Dose: 81 mg Documented by: Bisacodyl (Bisacodyl 10 Mg Supp) 10 mg NH DAILY PRN PRN Reason: Constipation Stop: 07/21/21 11:30 Dextrose (Dextrose 50% 50 Ml Syringe) 25 - 50 ml IV UD PRN; Protocol PRN Reason: Hypoglycemia Protocol Stop: 07/19/21 11:02 Diphenhydramine HCl (Diphenhydramine Capsule 25 Mg Cap) 25 mg PO Q6H PRN PRN Reason: Allergic Rhinitis/Insomnia Stop: 07/21/21 11:30 Famotidine (Famotidine 20 Mg Tab) 20 mg PO Q12H PRN PRN Reason: Dyspepsia Stop: 07/21/21 11:30 Fluoxetine HCl (Fluoxetine Hcl 20 Mg Cap) 20 mg PO QAM YANNA Stop: 07/19/21 10:29 Last Admin: 06/23/21 09:30 Dose: 20 mg Documented by: Gabapentin (Gabapentin 100 Mg Cap) 200 mg PO BID YANNA Stop: 07/19/21 10:29 Last Admin: 06/23/21 09:30 Dose: 200 mg Documented by: Glucagon (Glucagon For Inj 1 Mg Vial) 1 mg SQ UD PRN; Protocol PRN Reason: Hypoglycemia Protocol Stop: 07/19/21 11:02 Glucose (Glucose 10 Tabs/Tube) 4 - 8 tabs PO UD PRN; Protocol PRN Reason: Hypoglycemia Protocol Stop: 07/19/21 11:02 Glucose (Glucose 40% Gel 15 Gm Tube) 15 - 30 gm PO UD PRN; Protocol PRN Reason: Hypoglycemia Protocol Stop: 07/19/21 11:02 Hydrochlorothiazide (Hydrochlorothiazide 25 Mg Tab) 25 mg PO QAM YANNA Stop: 07/20/21 08:59 Last Admin: 06/23/21 07:58 Dose: Not Given Documented by: Hydromorphone HCl (Hydromorphone Inj 0.5 Mg/0.5 Ml Syr) 0.5 mg IV Q3H PRN PRN Reason: MODERATE Pain (Scale 4,5,6) & Pre PT Stop: 07/05/21 11:30 Last Admin: 06/21/21 22:40 Dose: 0.5 mg Documented by: Hydromorphone HCl (Hydromorphone Inj 1 Mg/Ml Syringe) 1 mg IV Q3H PRN PRN Reason: SEVERE Pain (Scale 7,8,9,10) Stop: 07/05/21 11:30 Hydroxyzine HCl (Hydroxyzine Hcl 25 Mg Tab) 25 mg PO Q8H PRN PRN Reason: Anxiety Stop: 07/21/21 11:30 Acetaminophen (Ofirmev) 1,000 mg in 100 mls @ 400 mls/hr IV Q8H PRN PRN Reason: Pain Rating 1-3 & Pre PT Stop: 06/24/21 11:30 Lorazepam (Ativan) 0.5 mg in 1 mls @ 1 mls/min IV Q8H PRN PRN Reason: Sedation/Anxiety Stop: 07/21/21 11:30 Dexamethasone 6 mg/ Syringe 1.5 mls @ 1 mls/min IV DAILY YANNA Stop: 06/24/21 09:02 Last Admin: 06/23/21 09:29 Dose: 1 mls/min Documented by: Promethazine HCl 12.5 mg/ (Sodium Chloride) 50.5 mls @ 202 mls/hr IV Q6H PRN PRN Reason: Nausea &/or Vomiting Stop: 07/21/21 11:30 Influenza Virus Vaccine Quadrival (Do Not Administer Flu Vaccine) 1 ea N/A PRN PRN PRN Reason: Notification Stop: 07/21/21 11:30 Insulin Aspart (Insulin Aspart Per Unit) 0 units SC [facility] Stop: 07/20/21 05:59 Last Admin: 06/23/21 12:25 Dose: 10 units Documented by: Insulin Glargine (Insulin Glargine Solostar 100 Units/Ml 3 Ml Pen) 0 units SC HS [facility]; Protocol Stop: 07/22/21 20:59 Lisinopril (Lisinopril 20 Mg Tab) 20 mg PO QAM [facility] Stop: 07/22/21 11:59 Last Admin: 06/23/21 09:30 Dose: 20 mg Documented by: Lorazepam (Lorazepam 0.5 Mg Tab) 0.5 mg PO Q8H PRN PRN Reason: Sedation/Anxiety Stop: 07/21/21 11:30 Magnesium Hydroxide (Magnesium Hydroxide Susp 30 Ml Udc) 30 ml PO Q24H PRN PRN Reason: Constipation Stop: 07/21/21 11:30 Methocarbamol (Methocarbamol 500 Mg Tablet) 500 mg PO Q8H PRN PRN Reason: Muscle Spasm Stop: 07/19/21 09:59 Metoclopramide HCl (Metoclopramide Hcl Inj 5 Mg/Ml 2 Ml Vial) 10 mg IV Q6H PRN PRN Reason: Nausea &/or Vomiting Stop: 07/21/21 11:30 Miscellaneous (Carbohydrates For Hypoglycemia ) 15 - 30 gm PO UD PRN PRN Reason: Hypoglycemia Protocol Stop: 07/19/21 11:02 Miscellaneous Information (Pharmacy Glycemic Mgmt Consult) 1 ea N/A UD PRN PRN Reason: Consult Stop: 07/19/21 09:59 Naloxone HCl (Naloxone Hcl 0.4 Mg/1 Ml Vial/Carp) 0.1 mg IV Q5M PRN PRN Reason: Oversedation/Resp depression Stop: 07/21/21 11:30 Ondansetron HCl (Ondansetron Inj 2 Mg/Ml 2 Ml Vial) 4 mg IV Q6H PRN PRN Reason: Nausea &/or Vomiting Stop: 07/21/21 11:30 Last Admin: 06/21/21 13:28 Dose: 4 mg Documented by: Ondansetron HCl (Ondansetron 4 Mg Od Tab) 4 mg PO Q6H PRN PRN Reason: Nausea Stop: 07/21/21 11:30 Last Admin: 06/21/21 22:39 Dose: 4 mg Documented by: Oxycodone HCl (Oxycodone Hcl Ir 5 Mg Tab (Immediate Release)) 5 - 10 mg PO Q4H PRN PRN Reason: Pain & Pre PT Stop: 07/05/21 11:30 Last Admin: 06/22/21 19:49 Dose: 10 mg Documented by: Pneumococcal Polyvalent Vaccine (Do Not Administer Pneumococcal Vaccine) 1 ea N/A PRN PRN PRN Reason: Notification Stop: 07/21/21 11:30 Senna/Docusate Sodium (Docusate Sodium/Senna 50/8.6mg Tab) 2 tab PO HS YANNA Stop: 07/21/21 20:59 Last Admin: 06/22/21 21:10 Dose: 2 tab Documented by: Sodium Biphosphate/Sodium Phosphate (Sod Phosphate/Sod Biphosphate Enema 132 Ml Btl) 132 ml NH ONE PRN PRN Reason: Constipation Stop: 07/21/21 11:30 Tramadol HCl (Tramadol Hcl 50 Mg Tablet) 50 - 100 mg PO Q4H PRN PRN Reason: Moderate-Severe pain & Pre PT Stop: 07/21/21 11:30
[2021-06-23] MEDS: ASPIRIN 81 MG ECTAB PO SCH (20:40)
[2021-06-23] MEDS: DOCUSATE SODIUM/SENNA 50/8.6MG TAB PO SCH (20:40)
[2021-06-23] MEDS ORDERED: INSULIN GLARGINE SOLOSTAR 100 UNITS/ML 3 ML PEN SC SCH (21:00)
--- NOTE | 2021-06-24 07:47 | Discharge Summary ---
Date of Service June 24, 2021 Admission HPI Per Admitting Provider This is a 65-year-old female who presents to emergency room with a steady decline in status. She has been seen in our office recently with concerns regarding back pain radiating to the bilateral buttock and vertically down the left lower extremity to the foot. Is been going progressive the past several years. Unfortunately injections performed recently lumbar spine exacerbated her radiculopathy. She is unable to stand or walk any distance. She notes marked deficits with her left foot tickly with plantar flexion. Discharge Data Consultations 06/19/21 08:21 ED Decision to Admit Stat 06/19/21 10:00 Consult Internal Medicine Routine Procedures Performed Operation Date: 06/20/21 08:50 <No data on this case meets the specified criteria> Operation Date: 06/21/21 08:15 Actual Procedures p L5-S1 Lumbar Decompression Fusion with Application of Bone Morphogenetic Protein and IFactor Bone Graft, Interbody Fusion and Spinal Cord Monitoring(Not Applicable) - Tom Espinosa DO Hospital Course (1) Lumbar radiculopathy: Patient is a 65-year-old female with history physical examination radiographic images consistent with the above-mentioned diagnosis. This reason she was admitted to the hospital and on 06/21/2021 she had undergone a lumbar decompression fusion L5-S1. Chief the operating room with CONOR drain in place and stretcher PACU in stable condition. She then transferred to the orthopedic floor. She was seen by physical therapy postop day #1 for ambulation and gait training. Throughout her hospital course her calves remained supple nontender her dressings remain clean dry and intact. On postop day #3 she was deemed safe for home discharge. She was to change her dressing once daily until there is no drainage. Once there is no drainage she may shower. She should not lift anything heavier than 5 to 7 pounds. She was to be seen in the office approximately 2 weeks out from surgery or sooner if she developed any increased pain fever chills or drainage from the incision.
[2021-06-24] MEDS: INSULIN ASPART PER UNIT SC SCH (08:30)
[2021-06-24] MEDS: dexAMETHasone 6 MG in SYRINGE 0 ML IV SCH (08:31)
[2021-06-24] MEDS: GABAPENTIN 100 MG CAP PO SCH (08:32)
[2021-06-24] MEDS: hydroCHLOROthiazide 25 MG TAB PO SCH (08:32)
[2021-06-24] MEDS: lisinopril 20 MG TAB PO SCH (08:33)
[2021-06-24] MEDS: FLUoxetine HCL 20 MG CAP PO SCH (08:33)
[2021-06-24] MEDS ORDERED: NovoLIN-N (NPH) PER UNIT CHARGE SQ ONE (09:00)
[2021-06-24] MEDS: ACETAMINOPHEN 500 MG TAB PO PRN (12:18)
--- NOTE | 2021-06-24 14:49 | Hospitalist Progress Note ---
Date of Service June 24, 2021 Assessment & Plan (1) Spinal stenosis of lumbar region with radiculopathy: (2) HTN (hypertension): (3) DM type 2 (diabetes mellitus, type 2): Plan: This is a 65-year-old female who has a significant past medical history of T2DM, HTN, Anxiety/Depression, hx of GABRIEL not using CPAP who presents to ED due to worsening low back pain with radicular symptoms and stool incontinence for several weeks. Spinal stenosis of lumbar region with radiculopathy POD #3 s/p lumbar decompression bilaterally facetectomies foraminotomies L4-L5 L5-S1 and posterior spinal fusion L5-S1 by Dr. Espinosa Per ortho for pain control, wound care, anticoagulation and activities Monitor H&H (hgb 10.9, pre-op hgb 13.1) Continue incentive spirometry, PT/OT when appropriate Pain is much improved and likely discharge tomorrow Remains medically stable to be discharged today T2DM Hold Tresiba, Metformin and Actos Glycemic pharmacy consult placed by admitting team Appreciate pharmacy assistance and blood glucose management Last a1c 7.6 on 05/17/21 Blood sugar is controlled Hypertension Resume Lisinopril today, hctz tomorrow AM Blood pressure remains on the upper side at 150/90 Depression with anxiety Continue Prozac Mood stable DVT ppx: SCD/TEDS per primary PCP: Heidi Stanford, pt resides near [place], [place] Medically stable to be discharged Admission and Anticipated Discharge Date Admission Date: June 19, 2021 Subjective 06/23/2021 The patient was seen and examined in medical floor She still complains to have some back pain but the numbness in the legs have been better She will be going home tomorrow 06/24/2021 The patient was seen and examined in medical floor She has been sitting on a chair without any acute distress She still has that redness at the back-which will be taken out before discharge today Review of Systems Review of Systems: No apparent distress at rest Physical Exam Physical Exam: Sitting on a chair without any distress Constitutional: WD/WN, vitals as above Eyes: PERRL, conjunctivae normal, anicteric sclerae ENMT: external ear and nose normal, oropharynx normal Neck: trachea midline, no thyromegaly Respiratory: normal respiratory effort, lungs clear to auscultation Cardiovascular: Rate/Rhythm: regular rate and regular rhythm Vessels: normal peripheral pulses Extremities: no edema Gastrointestinal (Abdomen): Inspection/Auscultation: normal bowel sounds; abdomen not distended Percussion/Palpation: abdomen soft; abdomen nontender Skin: no rashes, warm and dry Neurologic: no focal motor deficits Psychiatric: A+Ox3, euthymic affect Results & Data Results & Data ([facility]) Vital Signs (Past 12 Hours) Vital Signs Temp Pulse Pulse Pulse Resp BP Pulse Ox 06/24/21 12:24 36.4 C L 88 98 H 77 16 150/90 H 98 06/24/21 07:59 36.4 C L 77 16 150/90 H 98
== END 2021-06-24 12:45 | disposition home or self-care (01) | DRG 455 ==
LOC: ED 07:20 → 3E 08:56